=== PATIENT | male | born 1970 | race Caucasian/White ===

== ENCOUNTER 2021-11-16 05:00 | Emergency (ER) | payer BC, OTHER ==
[2021-11-16 05:39] LABS: Absolute Lymphocytes (CBC) 1.6 K/uL (0.7-4.9); Hematocrit 43.9 % (39.6-49.0); Lymphocytes % 22.9 % (15.3-44.8); MPV 7.2 fL (7.6-11.3); RBC Red Blood Cell Count 5.11 M/uL (4.33-5.43)
[2021-11-16 06:04] LABS: Albumin 4.1 g/dL (3.4-5.0); Bilirubin Total 0.8 mg/dL (0.2-1.0); Potassium 3.9 mmol/L (3.5-5.1); Protein, Total 7.8 g/dL (6.4-8.2)
--- NOTE | 2021-11-16 07:25 | RAD REPORT ---
EXAM DESCRIPTION: CT - Abdomen Pelvis W Contrast - 11/16/2021 6:48 am CLINICAL HISTORY: Abdominal pain, acute, nonlocalized COMPARISON: CTANGIO AORTA FOR DISSECTION dated 11/05/2009 TECHNIQUE: Biphasic, helical CT imaging of the abdomen and pelvis was performed following 100 ml non -ionic IV contrast. No oral contrast administered. All CT scans are performed using dose optimization technique as appropriate and may include automated exposure control or mA/KV adjustment according to patient size. FINDINGS: No suspicious findings in the lung bases. The liver, spleen, and pancreas show no suspicious findings. Gallbladder and biliary tree are also wi thout suspicious finding. Mild right-sided hydronephrosis is present secondary to a 4 mm stone at the right UVJ. This causes de layed function of the right kidney which is mildly edematous. No suspicious right renal parenchymal p rocess seen. No left-sided hydronephrosis. In the posterior mid to lower left kidney a 16 millimeter round mass is present. This is isodense to renal parenchyma on arterial phase imaging and decreased r elative to the adjacent parenchyma on venous phase imaging. Venous phase attenuation value is 76 HU. No pyelonephritis or other focal renal parenchymal process suspected. Urinary bladder is contracted w hich limits assessment. No suspicion for bladder wall thickening or mass. No adrenal abnormalities. No dilated bowel loops or bowel wall thickening. No suspicion for appendicitis. Sigmoid diverticulosi s is mild with no diverticulitis. No free air, free fluid or inflammatory stranding. No mass or bulk y lymphadenopathy. Fat filled left inguinal hernia is present with no acute component. No suspicious bony findings. IMPRESSION: Mild right-sided hydronephrosis secondary to a 4 mm UVJ calculus. A 16 mm posterior mid to lower pole left renal mass, new from a 2009 comparison, showing suspicious i maging characteristics. Statistically this is still most likely complex cyst rather than solid mass. Follow-up outpatient renal sonography could be performed to see there are simple cyst characteristic s by sonographic criteria. Alternatively, contrast-enhanced MRI imaging of the kidneys could be perfo rmed. Patient should at least have six-month contrast CT renal protocol follow-up if there is no bud ier diagnostic workup.
--- NOTE | 2021-11-16 08:31 | EDPHYS ---
Physician Documentation [facility] Name: Fermin Hanley Age: 51 yrs Sex: Male : 1970 Arrival Date: 11/16/2021 Time: 05:05 Bed 16 Private MD: ED Physician Edgar Brown HPI: 11/16 09:03 This 51 yrs old Male presents to ER via Ambulatory with complaints of Abdominal Pain. kdr 09:03 The patient presents with abdominal pain Right flank pain. Onset: The symptoms/episode kdr began/occurred suddenly, 2 day(s) ago, Patient states that he has had intermittent right flank pain for the past 2 days.. The symptoms radiate to the right flank. Associated signs and symptoms: Pertinent positives: nausea, Pertinent negatives: chest pain, constipation, diarrhea, dysuria, fever, headache, hematuria, vomiting. The symptoms are described as achy. Modifying factors: The symptoms are alleviated by nothing, the symptoms are aggravated by nothing. Severity of pain: At its worst the pain was mild moderate just prior to arrival, in the emergency department the pain is unchanged. The patient has not experienced similar symptoms in the past. The patient has not recently seen a physician. Historical: - Allergies: 05:16 Sulfa (Sulfonamide Antibiotics); lg3 - Home Meds: 05:16 metformin 500 mg Oral tab 1 tab 2 times per day [Active]; Simvastatin Oral [Active]; lg3 losartan 25 mg oral tab 1 tab once daily [Active]; - PMHx: 05:16 Diabetes mellitus; high cholesterol; lg3 - PSHx: 05:16 testicular mass removal; lg3 - Immunization history:: Adult Immunizations up to date, Client reports receiving the 2nd dose of the Covid vaccine, moderna X2. - Social history:: Smoking status: Patient denies any tobacco usage or history of. Patient/guardian denies using alcohol. ROS: 09:03 Constitutional: Negative for fever, chills, and weight loss, Eyes: Negative for injury, kdr pain, redness, and discharge, Neck: Negative for injury, pain, and swelling, Cardiovascular: Negative for chest pain, palpitations, and edema, Respiratory: Negative for shortness of breath, cough, wheezing, and pleuritic chest pain, Back: Negative for injury and pain, MS/Extremity: Negative for injury and deformity, Skin: Negative for injury, rash, and discoloration, Neuro: Negative for headache, weakness, numbness, tingling, and seizure activity. Psych: Negative for depression, anxiety, suicide ideation, homicidal ideation, and hallucinations, Allergy/Immunology: Negative for hives, rash, and allergies, Endocrine: Negative for neck swelling, polydipsia, polyuria, polyphagia, and marked weight changes, Hematologic/Lymphatic: Negative for swollen nodes, abnormal bleeding, and unusual bruising. 09:03 Abdomen/GI: Positive for abdominal pain, nausea, vomiting, Negative for constipation, abdominal cramps, abdominal distension, anorexia, dysphagia, black/tarry stool, rectal pain, rectal bleeding, bowel incontinence. Exam: 09:03 Constitutional: This is a well developed, well nourished patient who is awake, alert, kdr and in no acute distress. Head/Face: Normocephalic, atraumatic. Eyes: Pupils equal round and reactive to light, extra-ocular motions intact. Lids and lashes normal. Conjunctiva and sclera are non-icteric and not injected. Cornea within normal limits. Periorbital areas with no swelling, redness, or edema. ENT: Nares patent. No nasal discharge, no septal abnormalities noted. Tympanic membranes are normal and external auditory canals are clear. Oropharynx with no redness, swelling, or masses, exudates, or evidence of obstruction, uvula midline. Mucous membranes moist. Neck: Trachea midline, no thyromegaly or masses palpated, and no cervical lymphadenopathy. Supple, full range of motion without nuchal rigidity, or vertebral point tenderness. No Meningismus. Chest/axilla: Normal chest wall appearance and motion. Nontender with no deformity. No lesions are appreciated. Cardiovascular: Regular rate and rhythm with a normal S1 and S2. No gallops, murmurs, or rubs. Normal PMI, no JVD. No pulse deficits. Respiratory: Lungs have equal breath sounds bilaterally, clear to auscultation and percussion. No rales, rhonchi or wheezes noted. No increased work of breathing, no retractions or nasal flaring. Back: No spinal tenderness. No costovertebral tenderness. Full range of motion. Skin: Warm, dry with normal turgor. Normal color with no rashes, no lesions, and no evidence of cellulitis. MS/ Extremity: Pulses equal, no cyanosis. Neurovascular intact. Full, normal range of motion. Neuro: Awake and alert, GCS 15, oriented to person, place, time, and situation. Cranial nerves II-XII grossly intact. Motor strength 5/5 in all extremities. Sensory grossly intact. Cerebellar exam normal. Normal gait. Psych: Awake, alert, with orientation to person, place and time. Behavior, mood, and affect are within normal limits. 09:03 Abdomen/GI: Inspection: abdomen appears normal, Bowel sounds: active, Palpation: soft, mild abdominal tenderness, in the right lower quadrant, mass, is not appreciated, rebound tenderness, is not appreciated. Vital Signs: 05:12 BP 142 / 95; Pulse 77; Resp 16 S; Temp 97.6(O); Pulse Ox 100% on R/A; Weight 90.72 kg lg3 (R); Height 5 ft. 10 in. (177.80 cm) (R); Pain 7/10; 07:27 BP 112 / 78; Pulse 76; Resp 16; Pulse Ox 95% ; bp 05:12 Body Mass Index 28.70 (90.72 kg, 177.80 cm) lg3 MDM: 08:30 Patient medically screened. kdr 09:03 Data reviewed: vital signs, nurses notes, lab test result(s), radiologic studies. kdr Counseling: I had a detailed discussion with the patient and/or guardian regarding: the historical points, exam findings, and any diagnostic results supporting the discharge/admit diagnosis, lab results, radiology results, the need for outpatient follow up. 11/16 05:10 Order name: CBC with Diff; Complete Time: 07:40 kdr 11/16 05:10 Order name: CMP; Complete Time: 07:40 kdr 11/16 05:10 Order name: Lipase; Complete Time: 07:40 kdr 11/16 05:10 Order name: IV Saline Lock; Complete Time: 05:29 kdr 11/16 05:25 Order name: CT Abd/Pelvis - IV Contrast Only; Complete Time: 07:40 kdr 11/16 05:10 Order name: Labs collected and sent; Complete Time: 05:29 kdr Administered Medications: 05:30 Not Given (Patient Refused): Zofran (Ondansetron) 4 mg IVP once; over 2 minutes sm5 Disposition Summary: 11/16/21 08:30 Discharge Ordered Location: Home kdr Problem: new kdr Symptoms: have improved kdr Condition: Stable kdr Diagnosis - Kidney stone: 4 mm right UVJ stone kdr - Renal mass: 10 mm right kidney kdr Followup: kdr - With: Private Physician - When: 2 - 3 days - Reason: If symptoms return, Further diagnostic work-up, Recheck today's complaints, Continuance of care, Re-evaluation by your physician Followup: kdr - With: Gume Harding MD - When: 1 - 2 days - Reason: If symptoms return, Further diagnostic work-up, Recheck today's complaints, Continuance of care, Re-evaluation by your physician Discharge Instructions: - Discharge Summary Sheet kdr - Kidney Stones, [id number] kdr Forms: - Medication Reconciliation Form kdr - Thank You Letter kdr - Antibiotic Education kdr - Prescription Opioid Use kdr Prescriptions: - Zofran 4 mg Oral Tablet - take 1 tablet by ORAL route every 12 hours As needed; 6 tablet; Refills: 0, kdr Product Selection Permitted - Bactrim DS 800-160 mg Oral Tablet - take 1 tablet by ORAL route every 12 hours for 3 days; 6 tablet; Refills: 0, kdr Product Selection Permitted - Tylenol-Codeine #3 300 mg-30 mg Oral - take 1 tablet by ORAL route every 4-6 hours As needed; 16 tablet; Refills: 0, kdr Product Selection Permitted - Flomax 0.4 mg Oral capsule - take 1 capsule by ORAL route once daily 1/2 hour following the same meal each kdr day; 15 capsule; Refills: 0, Product Selection Permitted Signatures: Dispatcher [employer] Edgar Dutton MD MD kdr Eva Bal RN RN lg3 Jumana Mosquera RN sm5
--- NOTE | 2021-11-16 08:31 | ER ---
Nurse's Notes [facility] Name: Fermin Hanley Age: 51 yrs Sex: Male : 1970 Arrival Date: 11/16/2021 Time: 05:05 Bed 16 Private MD: Diagnosis: Kidney stone: 4 mm right UVJ stone;Renal mass: 10 mm right kidney Presentation: 11/16 05:12 Chief complaint: Patient states: right lower abdominal pain started on Tuesday lg3 afternoon but it went away until around midnight and started back again. it is gradually getting worse over time. Coronavirus screen: Client denies travel out of the [place] in the last 14 days. At this time, the client does not indicate any symptoms associated with coronavirus-19. Ebola Screen: No symptoms or risks identified at this time. Initial Sepsis Screen: Does the patient meet any 2 criteria? No. Patient's initial sepsis screen is negative. Does the patient have a suspected source of infection? No. Patient's initial sepsis screen is negative. Risk Assessment: Do you want to hurt yourself or someone else? Patient reports no desire to harm self or others. Onset of symptoms was November 14, 2021. 05:12 Method Of Arrival: Ambulatory lg3 05:12 Acuity: PEREZ 3 lg3 Triage Assessment: 05:16 General: Appears in no apparent distress. uncomfortable, Behavior is calm, cooperative. lg3 Pain: Complains of pain in right lower quadrant. EENT: No deficits noted. No signs and/or symptoms were reported regarding the EENT system. Neuro: No deficits noted. Level of Consciousness is awake, alert, obeys commands, Oriented to person, place, time, situation. Cardiovascular: No deficits noted. Denies chest pain, shortness of breath, Capillary refill < 3 seconds Clubbing of nail beds is absent JVD is absent Patient's skin is warm and dry. Respiratory: No deficits noted. Airway is patent Trachea midline Respiratory effort is even, unlabored, Respiratory pattern is regular, symmetrical. GI: Reports lower abdominal pain, intolerance of fluids, intolerance of food, nausea. : No deficits noted. No signs and/or symptoms were reported regarding the genitourinary system. Derm: No deficits noted. No signs and/or symptoms reported regarding the dermatologic system. Skin is intact, is healthy with good turgor, Skin is dry, Skin is pink, warm \T\ dry. Musculoskeletal: No deficits noted. No signs and/or symptoms reported regarding the musculoskeletal system. Circulation, motion, and sensation intact. Range of motion: intact in all extremities. Historical: - Allergies: 05:16 Sulfa (Sulfonamide Antibiotics); lg3 - Home Meds: 05:16 metformin 500 mg Oral tab 1 tab 2 times per day [Active]; Simvastatin Oral [Active]; lg3 losartan 25 mg oral tab 1 tab once daily [Active]; - PMHx: 05:16 Diabetes mellitus; high cholesterol; lg3 - PSHx: 05:16 testicular mass removal; lg3 - Immunization history:: Adult Immunizations up to date, Client reports receiving the 2nd dose of the Covid vaccine, moderna X2. - Social history:: Smoking status: Patient denies any tobacco usage or history of. Patient/guardian denies using alcohol. Screenin:41 Abuse screen: Denies threats or abuse. Denies injuries from another. Nutritional sm5 screening: No deficits noted. Tuberculosis screening: No symptoms or risk factors identified. Fall Risk None identified. Assessment: 05:45 General: Appears in no apparent distress. Behavior is calm, cooperative, appropriate kd3 for age. Neuro: Level of Consciousness is awake, alert, obeys commands, Oriented to person, place, time, situation. Cardiovascular: Patient's skin is warm and dry. Respiratory: Airway is patent Trachea midline Respiratory effort is even, unlabored. GI:. 07:30 Reassessment: No changes from previously documented assessment. Patient and/or family bp updated on plan of care and expected duration. Pain level reassessed. ALL CURRENT ORDERS COMPLETE. 08:55 GI: Bowel sounds present X 4 quads. Abd is soft. ap3 Vital Signs: 05:12 BP 142 / 95; Pulse 77; Resp 16 S; Temp 97.6(O); Pulse Ox 100% on R/A; Weight 90.72 kg lg3 (R); Height 5 ft. 10 in. (177.80 cm) (R); Pain 7/10; 07:27 BP 112 / 78; Pulse 76; Resp 16; Pulse Ox 95% ; bp 05:12 Body Mass Index 28.70 (90.72 kg, 177.80 cm) lg3 ED Course: 05:05 Patient arrived in ED. ag3 05:08 Edgar Brown MD is Attending Physician. kdr 05:16 Triage completed. lg3 05:16 Arm band placed on left wrist. lg3 05:29 Jumana Mosquera, RN is Primary Nurse. sm5 05:42 Patient has correct armband on for positive identification. Bed in low position. Call sm5 light in reach. Side rails up X2. 05:55 Inserted saline lock: 20 gauge in right antecubital area, using aseptic technique. sm5 Blood collected. 06:49 CT Abd/Pelvis - IV Contrast Only In Process Unspecified. EDMS 08:28 Gume Harding MD is Referral Physician. kdr 08:55 No provider procedures requiring assistance completed. IV discontinued, intact, ap3 bleeding controlled, No redness/swelling at site. Pressure dressing applied. Administered Medications: 05:30 Not Given (Patient Refused): Zofran (Ondansetron) 4 mg IVP once; over 2 minutes sm5 Outcome: 08:30 Discharge ordered by . kdr 08:56 Discharged to home ambulatory, with family. ap3 08:56 Condition: good 08:56 Discharge instructions given to patient, family, Instructed on discharge instructions, follow up and referral plans. medication usage, Demonstrated understanding of instructions, follow-up care, medications, Prescriptions given X 4. 08:56 Patient left the ED. ap3 Signatures: Dispatcher [employer] ED[facility] Edgar Brown MD MD kdr Travon Mcguire, RN RN Yudelka Gibbons RN RN ap3 Michelle Holland 3 Eva Bal RN RN 3 Sarah Solis, REECE NEWELL 3 Jumana Mosquera, RN RN 5
[2021-11-16 09:02] VITALS: TEMP 97.6
[2021-11-16 09:03] VITALS: BP 112/78; O2SAT 95
== END 2021-11-16 08:56 | disposition home or self-care (01) ==
LOC: ER 05:00
DX: N20.0 Calculus of kidney (principal); N28.89 Other specified disorders of kidney and ureter; Z88.2 Allergy status to sulfonamides; E11.9 Type 2 diabetes mellitus without complications; E78.00 Pure hypercholesterolemia, unspecified
CPT/HCPCS: 85025; 36415; 83690; 80053; 74177; 99284; Q9967

== ENCOUNTER 2022-07-30 20:08 | Emergency (ER) | payer OTHER ==
--- OUTSIDE RECORDS SUMMARY | 2022-07-30 20:26 | XMS REPORT | Continuity of Care Document ---
:1970 Author Organization [facility] t Address [address] [place] [address] Care Team Providers Name Role Phone [phone] Primary Care Physician Unavailable SYSTEM, PROVIDER NOT IN Attending Clinician Unavailable Liliana Aguilera Attending Clinician Germaine Rojas RN Attending Clinician Unavailable Bren Osorio Attending Clinician Aye Camargo MD Attending Clinician AYE CAMARGO Attending Clinician Unavailable Jose Hernández Attending Clinician JOSE CHRISTENSEN Attending Clinician Unavailable Emmanuel Desouza RN Attending Clinician Gume Harding MD Attending Clinician Payers Payer Name Policy Type Policy Number Effective Date Expiration Date S ource Problems Condition Condition Condition Status Onset Resolution Last Treating Co mments Source Name Details Category Date Date Treatment Clinician Date Nephrolith Nephrolith Disease Active 2022- U nivers iasis iasis 1-05 ity of 00:00: 00 [facility] Renal mass Renal mass Disease Active 2021-07 U nivers 0-10 ity of 00:00: MD [facility] Obstructiv Obstructiv Disease Active 2021-07 U nivers e sleep e sleep 0-10 ity of apnea apnea 00:00: [place] syndrome syndrome 00 MD [facility] Diabetes Diabetes Disease Active 2021-07 Unive rs mellitus mellitus 0-10 ity of 00:00: [place] 00 MD [facility] Type 2 Type 2 Disease Active 2021-07 Univers diabetes diabetes 0-10 ity of mellitus mellitus 00:00: [place] MD Jaclyn angela [facility] Allergies, Adverse Reactions, Alerts Allergy Allergy Status Severity Reaction(s) Onset Inactive Treating Comm ents Source Name Type Date Date Clinician SULFA Drug Active Low Rash 2021- MD (SULFONA Class 0-10 Anderso MIDE 00:00: n ANTIBIOT 00 ICS) SULFA Drug Active Low Rash 2021- MD (SULFONA Class 0-10 Anderso MIDE 00:00: n ANTIBIOT 00 ICS) SULFA Drug Active Low Rash 2021- MD (SULFONA Class 0-10 Anderso MIDE 00:00: n ANTIBIOT 00 ICS) SULFA Drug Active Low Rash 2021- MD (SULFONA Class 0-10 Anderso MIDE 00:00: n ANTIBIOT 00 ICS) SULFA Drug Active Low Rash 2021- MD (SULFONA Class 0-10 Anderso MIDE 00:00: n ANTIBIOT 00 ICS) SULFA Drug Active Low Rash 2021-1 MD (SULFONA Class 0-10 Anderso MIDE 00:00: n ANTIBIOT 00 ICS) SULFA Drug Active Low Rash 2021-1 MD (SULFONA Class 0-10 Anderso MIDE 00:00: n ANTIBIOT 00 ICS) SULFA Drug Active Low Rash 2021-1 MD (SULFONA Class 0-10 Anderso MIDE 00:00: n ANTIBIOT 00 ICS) SULFA Drug Active Low Rash 2021-1 MD (SULFONA Class 0-10 Anderso MIDE 00:00: n ANTIBIOT 00 ICS) SULFA Drug Active Low Rash 2-1 MD (SULFONA Class 0-10 Anderso MIDE 00:00: n ANTIBIOT 00 ICS) SULFA Drug Active Low Rash 2-1 MD (SULFONA Class 0-10 Anderso MIDE 00:00: n ANTIBIOT 00 ICS) Sulfa Propensi Active Rash 2021- Univers (Sulfona ty to 0-10 ity of mide adverse 00:00: [place] Antibiot reaction 00 ics) s [facility] Family History Family Member Diagnosis Comments Start Date Stop Date Source Natural father Leukemia [facility] Social History Social Habit Start Date Stop Date Quantity Comments Source Tobacco use and 2022-05-03 2022-05-03 Smokeless tobacco Un iversity of exposure 00:00:00 00:00:00 non-user Micki chambers [facility] Alcohol intake 2022-05-03 2022-05-03 Lifetime University of 00:00:00 00:00:00 non-drinker Micki gonz[facility]les ([facility] Sex Ass[birth year] Universit y of 00:00:00 00:00:00 [place] MD Cong chambers [facility] Smoking Status Start Date Stop Date Source Never smoked tobacco [facility] Medications Ordered Filled Start Stop Current Ordering Indication Dosage Frequency Signature Comments Components Source Medication Medication Date Date Medication? Clinician (SIG) Name Name tamsulosin Yes Nephrolithi .4mg Take 1 Univers (FLOMAX) 1-05 asis capsule ity of 0.4 mg 24 00:00: (0.4 mg) [place] capsule 00 by mouth MD marce Anaya daily. n [facility] multivitami 2021-07 Yes 1{tbl} Take 1 Un deann n tab 1-07 tablet by ity of tablet 10:33: mouth [place] 40 daily. MD Jaclyn angela [facility] atorvastati Yes 40mg Take 40 mg Univers n (LIPITOR) 7-19 by mouth ity of 40 mg 00:00: daily. [place] tablet 00 MD Jaclyn angela [facility] losartan Yes 25mg Take 25 mg Uni vers (COZAAR) 25 7-19 by mouth ity of mg tablet 00:00: daily. [place] 00 MD Jaclyn angela [facility] metFORMIN Yes 500mg Take 500 Uni vers (GLUCOPHAGE 7-19 mg by ity of ) 500 mg 00:00: mouth 2 [place] tablet 00 (two) MD times a Jaclyn day with n meals. [facility] Immunizations Ordered Filled Immunization Date Status Comments Sourc e Immunization Name Name Moderna SARS-CoV-2 2020-10-03 Completed Univer sity of Vaccination 00:00:00 Micki gonzáles [facility] Moderna SARS-CoV-2 2020-08-30 Completed Univer sity of Vaccination 00:00:00 Micki [facility] Vital Signs Vital Name Observation Time Observation Value Comments Source Systolic blood 2022-05-31 16:22:17 122 mm[Hg] Univer sity of pressure [facility] Diastolic blood 2022-05-31 16:22:17 80 mm[Hg] Unive rsity of pressure [place] MD [facility] Heart rate 2022-05-31 16:22:17 71 /min [facility] Body temperature 2022-05-31 16:22:17 36.28 Lisa [facility] Respiratory rate 2022-05-31 16:22:17 18 /min [facility] Oxygen saturation in 2022-05-31 16:22:17 99 /min [facility] Arterial blood by Micki bradley Pulse oximetry [facility] Body height 2022-05-03 13:44:39 178.5 cm [facility] Body weight 2022-05-03 13:44:39 94.3 kg [facility] MD [facility] BMI 2022-05-03 13:44:39 29.60 kg/m2 [facility] MD [facility] Procedures Procedure Date / Time Performed Performing Clinician Sour e CT ABDOMEN W WO 2022-05-31 15:00:00 [facility] CONTRAST [facility] POC CREATININE 2022-05-31 14:23:00 [facility] XR CHEST 2 VW 2022-05-31 13:08:[facility] OSI MRI ABDOMEN 2021-11-23 13:05:00 Mary Jo [facility] Plan of Care Planned Activity Planned Date Details Comments Source Future Scheduled 2022-07-29 COVID-19 [facility] Test 09:47:46 (3 - Booster for MD Yfn Cancer Moderna series) [code Center = COVID-19 Vaccination (3 - Booster for Moderna series)] Encounters Start End Encounter Admission Attending Care Care Encounter Source Date/Time Date/Time Type Type Clinicians Facility Department ID 2022-05-19 Outpatient SYSTEM, [facility] YANIRA [id number] 12:41:20 PROVIDER Jas angela 2022-04-08 Outpatient SYSTEM, YANIRA DOLYE [id number] 07:12:00 PROVIDER Jas angela 2022-07-29 2022-07-29 Orders Shed, 1.2.840.1 [id number] Univers 00:00:00 00:00:00 Only Liliana Chavis 72959.1.1 ity of 3.412.2.7 [place] .3.068535 MD Travis8 [facility] 2022-06-28 2022-06-28 Telephone Crystal, 1.2.840.1 [id number] Univers 00:00:00 00:00:00 Germaine 21705.1.1 it y of 3.412.2.7 [place] .3.647462 MD Cody [facility] 2022-06-03 2022-06-03 Orders Leon, 1.2.840.1 [id number] Univers 00:00:00 00:00:00 Only Bren 69210.1.1 ity of 3.412.2.7 [place] .3.776153 MD Cody [facility] 2022-05-31 2022-05-31 Office Adibfilippo, 1.2.840.1 [id number] Univers 10:30:00 11:48:31 Visit Aye 24617.1.1 ity of 3.412.2.7 [place] .3.921408 MD Cody [facility] 2022-05-31 2022-05-31 Outpatient EL MARY JO, YANIRA DOYLE [id number] 09:11:56 11:48:31 AYE angela 2022-05-31 2022-05-31 Ancillary Jose Christensen 1.2.840.1 [id number] Univers 06:50:00 09:40:00 Procedure 52645.1.1 it y of 3.412.2.7 [place] .3.013507 MD Cody [facility] 2022-05-31 2022-05-31 Ancillary Jose Christensen 1.2.840.1 [id number] Univers 09:15:00 09:30:00 Procedure 40554.1.1 it y of 3.412.2.7 [place] .3.775740 MD Cody [facility] 2022-05-31 2022-05-31 Outpatient JOSE APONTE MDA MDA [id number] 06:23:58 06:23:58 [facility] 2022-05-31 2022-05-31 Outpatient JOSE APONTE MDA MDA [id number] 06:23:37 06:23:37 Jas [facility] 2022-05-31 2022-05-31 Travel 1.2.840.1 [id number] [id number] Univers 00:00:00 00:00:00 42399.1.1 350.1.13.41 ity of 3.412.2.7 2.[place]7.3.698 [place] .3.620221 084.8 .8 [facility] 2022-05-14 2022-05-14 Telephone Deo, 1.2.840.1 [id number] Univers 00:00:00 00:00:00 Macaela T 21326.1.1 it y of 3.412.2.7 [place] .3.307797 MD Travis8 [facility] 2022-05-03 2022-05-03 Office Mary Jo, 1.2.840.1 [id number] Univers 09:00:00 10:15:40 Visit Mehrmeena 79531.1.1 ity of 3.412.2.7 [place] .3.772690 MD Travis8 [facility] 2022-05-03 2022-05-03 Outpatient MARY JO YANIRA MDA [id number] 08:34:35 10:15:40 MEBRY Mark julio césar 2022-05-03 2022-05-03 Travel 1.2.840.1 [id number] [id number] Univers 00:00:00 00:00:00 84376.1.1 350.1.13.41 ity of 3.412.2.7 2.[place].7.3.698 [place] .3.462934 084.8 MD Travis8 [facility] 2022-05-01 2022-05-01 Outpatient WESTON MARY JOYANIRA [facility] [id number] MD 13:03:43 13:03:47 AYE Jasannabelle angela 2022-05-01 2022-05-01 NPR Adibi, 1.2.840.1 [id number] Univers 11:00:00 13:03:47 Mebry 63695.1.1 ity of 3.412.2.7 [place] .3.265153 MD Travis8 [facility] 2022-04-23 2022-04-23 Ancillary Adibi, 1.2.840.1 [id number] Univers 20:00:00 20:05:00 Procedure Aye 97644.1.1 it y of 3.412.2.7 [place] .3.304827 MD Cody [facility] 2022-04-23 2022-04-23 Outpatient MEENAFilippoYANIRA [facility] [id number] 06:43:39 06:43:39 AYE Jasannabelle angela 2022-04-06 2022-04-06 Telephone [place], 1.2.840.1 [id number] Univers 00:00:00 00:00:00 Gume 55203.1.1 ity of 3.412.2.7 [place] .3.706338 MD Travis8 [facility] Results Test Description Test Time Test Comments Results Result Comments Source POC Creatinine 2022-05-31 13:27:16 Test Item Value Reference Range Interpretation Comme nts POC Crea (test code = 0.9 mg/dL 0.6-1.3 Medica tions, especially 07238-9) hydroxyurea or supplements, such as ascorba te, can interfere with test results causing a false ly and significantly h igher result than expected. If a problem is suspected with a patient's result, a sampl e should be sent to the lab oratory for confirmatory te sting. Method description: Th e i-STAT is an analyzer used f or in vitro quantification of various analytes in who le blood. The device uses a s vinod disposable cart ridge which contains microf abricated sensors, a nadeem bration solution, fluid ics system, and a waste chamber . Each test cartridge conta ins chemically sensitive biose nsors on a silicon chip th at are configured to p erform specific tests. The micr ofabricated sensors measure analyte concentration b y an electrochemical assay. POC EGFR (test code = 102 See_Comment The eG FRcr is calculated with [address]4796) the 2020 CKD-EP I creatinine equation using creatinine, patient's age, and sex for adults 18 years of age and older. Other fa ctors, especially musc le mass, may affect accuracy and need to be considered.Acco rding to the Kidney Disease: Improving Global Outcomes (KDIGO) CKD Work Group 2012 Clinical Practice Guidel ine, chronic kidney disease (CKD) is defined as the abnormalities of kidney struc ture or function, prese nt for more than 3 months, with implications fo r health. CKD should be class ified by cause, GFR category, a nd albuminuria category. KDIGO guidelines provide the fol lowing GFR categoriesStage Description GFR mL/min/1.73 m2G1* Normal or high >= 90G2 * Mildly decreased 60-89 G3a Mildly to moderately decr eased 45-59G3b Moderately to s everely decreased 30-44 G4 Severely decreased 15-29 G5 Kidney failure <15*In the absence of evidence of kid antwan damage, neither G1 nor G2 fulfill criteria for CK D. [Automated message] The sy stem which generated this result transmitted ref erence range: >=60 mL/min/1.7 3 sq. m. The reference range was not used to interpret th is result as normal/abnormal . POC Clean Dev (test code Yes = 6672) Performing Lab (test code [facility] = 67290) [facility] ,[address], [place] [address], Point of Care Machine Operator Transplanter: Luis Benito MD [facility] [place]
--- OUTSIDE RECORDS SUMMARY | 2022-07-30 20:26 | XMS REPORT | Clinical Summary ---
:1970 Author Organization [facility] MD [facility] Address [address] [place] [address] Care Team Providers Name Role Phone Klever Camargo MD Primary Care Provider Allergies Active Allergy Reactions Severity Noted Date Comments Sulfa (Sulfonamide Antibiotics) Rash Low Medications Medication Sig Dispensed Refills Start Date End Date Status atorvastatin (LIPITOR) Take 40 mg by 0 02/09/2021 Active 40 mg tablet mouth daily. losartan (COZAAR) 25 mg Take 25 mg by 0 02/09/2021 Active tablet mouth daily. metFORMIN (GLUCOPHAGE) Take 500 mg by 0 02/09/2021 Active 500 mg tablet mouth 2 (two) times a day with meals. multivitamin tab tablet Take 1 tablet 0 Active by mouth daily. tamsulosin (FLOMAX) 0.4 Take 1 capsule 30 capsule 0 07/29/2022 Active mg 24 hr (0.4 mg) by capsuleIndications: mouth twice Nephrolithiasis daily. Active Problems Problem Noted Date Nephrolithiasis 07/29/2022 Renal mass 05/03/2022 Obstructive sleep apnea syndrome 05/03/2022 Diabetes mellitus 05/03/2022 Type 2 diabetes mellitus 05/03/2022 Encounters Date Type Specialty Care Team Description 07/29/2022 Orders Only Survivorship Liliana Berry Nephroljaren GONSALES (Primary Dx) 06/28/2022 Telephone Surgical Oncology Germaine Rojas, REECE 06/03/2022 Orders Only Radiology Bren Leon PA 05/31/2022 Office Visit Urology Klever Camargo Renal mass 05/31/2022 Ancillary Radiology Claudio Christensen PA Renal mass Procedure 05/31/2022 Ancillary Radiology Claudio Christensen PA Renal mass Procedure 05/31/2022 Travel 05/14/2022 Telephone Oncology Emmanuel Desouza RN 05/03/2022 Office Visit Urology Klever Camargo, Renal mass (Alejandro elkins MD Dx) 05/03/2022 Travel 05/01/2022 NPR Patient Access Klever Camargo Services 04/23/2022 Ancillary Radiology Klever Camargo, Cancer Procedure 04/06/2022 Telephone Patient Access Odilia Harding MD after 07/30/2021 Immunizations Name Administration Dates Next Due Moderna SARS-CoV-2 Vaccination 10/03/2020, 08/30/2020 Surgical History Surgery Date Site/Laterality Comments INCISION AND DRAINAGE 07/25/2015 - 07/24/2016 unde r anesthesia PERIRECTAL ABSCESS Medical History Medical History Date Comments Hyperlipidemia Probably 10 years ago Irregular heart beat [facility] Hearing loss 6-7 yrs ago Probably just aging Functional visual loss 4yrs ago Got contacts Swallowing problem 4yrs ago Planned to have it c hecked out and changed diet due to diabetes. No issues since then. 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 airway pressure ventilation Renal stone October 2021 How we discovered ma sses in kidney Rheumatoid arthritis 15 yrs? Right Shoulder Diabetes mellitus January 2021 Essential (primary) hypertension Renal mass 05/03/2022 Family History Medical History Relation Name Comments Leukemia Father Edward Hanley Relation Name Status Comments Father Edward Hanley Social History Tobacco Use Types Packs/Day Years Used Date Smoking Tobacco: Never Smokeless Tobacco: Never Alcohol Use Standard Drinks/Week Comments Never 0 (1 standard drink = 0.6 oz pure alcoho l) Sex Assigned at Date Recorded Not on file Job Start Date Occupation Industry Not on file Not on file Not on file Obstetrics History Last Filed Vital Signs Vital Sign Reading Time Taken Comments Blood Pressure 122/80 05/31/2022 10:22 AM MACHINE CUTTER Pulse 71 05/31/2022 10:22 AM MACHINE CUTTER Temperature 36.3 C (97.3 F) 05/31/2022 10:22 AM MACHINE CUTTER Respiratory Rate 18 05/31/2022 10:22 AM MACHINE CUTTER Oxygen Saturation 99% 05/31/2022 10:22 AM MACHINE CUTTER Inhaled Oxygen Concentration - - Weight 94.3 kg (207 lb 14.3 oz) 05/03/2022 8:44 AM CDT Height 178.5 cm (5' 10.28") 05/03/2022 8:44 AM CDT Body Mass Index 29.6 05/03/2022 8:44 AM CDT Plan of Treatment Date Type Specialty Care Team Description 08/10/2022 Clinical Support Covid Bren Leon PA [address] [place] [address]. [place], [place] [address] (Wo rk) 08/10/2022 Appointment Cardiology Bren Leon PA [address] [place] [phone] (Wo rk) 08/10/2022 Appointment Lab Bren Leon PA [address] [place] [phone] (Wo rk) 08/10/2022 Appointment Radiology Klever Camargo M D [address] [place] [phone] Maegan Love MD [address] [place] [phone] 08/10/2022 POEM Appointments Anesthesiology Bren Leon PA [address] [place] [phone] (Wo rk) 08/11/2022 Appointment Radiology Liliana Berry PA [address] [place] [phone] Maegan Love MD [address] [place] [phone] 08/18/2022 Appointment Radiology Klever Camargo M D [facility] [place], [place] [address] (Wo rk) 08/19/2022 Telemedicine Urology Klever Camargo M D [address] [place], [place] 7[address] (Wo rk) 01/28/2023 Appointment Radiology Klever Camargo M D [address] [place], [place] 7[address] (Wo rk) 08/05/2023 Appointment Radiology Klever Camargo M D [address] [place], [place] [address] (Wo rk) Health Maintenance Due Date Last Done Comments COVID-19 Vaccination (3 - Booster for 11/28/2020 10/03/2020 , 08/30/2020 Moderna series) Procedures Procedure Name Priority Date/Time Associated Comments Diagnosis CT ABDOMEN W WO Routine 05/31/2022 9:00 AM Renal mass Result s for this CONTRAST MACHINE CUTTER procedure are i n the results section. POC CREATININE Routine 05/31/2022 8:23 AM Results for this MACHINE CUTTER procedure are i n the results section. XR CHEST 2 VW Routine 05/31/2022 7:08 AM Renal mass Results for this MACHINE CUTTER procedure are i n the results section. OSI MRI ABDOMEN Routine 11/23/2021 8:05 AM Cancer Result s for this CDT procedure are i n the results section. after 07/30/[address] Abdomen with and without Contrast (05/31/2022 9:00 AM MACHINE CUTTER) Anatomical Region Laterality Modality Abdomen Computed Tomography Specimen (Source) Anatomical Collection Method Collection Time Re ceived Time Location / / Volume Laterality 05/31/2022 9:19 AM MACHINE CUTTER Impressions 05/31/2022 9:48 AM MACHINE CUTTER 1. Two enhancing left renal masses are overall stable in size since 11/23/2021, likely renal cell carcinoma. 2. No definite metastasis in the abdom en. Narrative 05/31/2022 9:48 AM MACHINE CUTTER Examination: CT ABDOMEN W WO CONTRAST, 1 07/31/2021 9:00 AM Clinical History: Renal mass Indication: Evaluate Renal Masses - Yarelis l Protocol Comparison: Outside facility MRI abdomen from 11/23/2021 Technique: CT of the abdomen was perform ed with and without intravenous contrast. Findings: LUNG BASES: Small cluster of nonspecific groundglass and nodular pulmonary opacities in the right lower lobe may represent inflammatory or infectious process and can be followed (series 3 image 22 and 26 are exampl es). A 0.4 cm calcified granuloma lies i n the left lower lobe. No pleural effusions. ABDOMEN: No suspicious liver lesions. The gallbla dder, pancreas, spleen and adrenal glands are normal. The left kidney contains 2 enhancing mas ses suspicious for renal cell carcinoma, which are overall unchanged in size when compared to outside facility MRI dated 11/23/2021. The first mass is in the upper pole, predominantly intracortical with s lightly exophytic bulging, does not involve the renal sinus fat or calyces and measures approximately 1.7 cm x 1.5 cm (series 6 image 88). The mass also contains likely small foci of cystic changes. The second enhancing left renal mass lie s in the lower pole, is also predominantly intracortical with minimal exophytic extension, slightly abuts the adjacent renal calyx and measures approximately 1.8 cm x 1.9 cm (series 15 image 71). Stable probably 0.5 cm right renal corti olivia cyst. Slightly larger left parapelvic renal cysts also unchanged. The left kidney contains a nonobstructive 0.4 cm stone. No hydronephrosis in both kidneys. No thrombus in the IVC or renal veins. Likely small descending duodenal diverti culum. No suspicious bowel wall thickening or obstruction seen in the abdomen. Stable slightly prominent nonspecific 1. 2 cm common hepatic artery lymph node (series 11 image 76). No lymphadenopathy otherwise seen elsewhere in the abdomen including the retroperitoneum. No ascites or free intraperitoneal air. Moderate degenerative changes along the thoracic and lumbar spine consisting of osteophyte formations. Procedure Note Chandan Butler MD - 05/31/2022Formatting of th is note might be different from the original. Examination: CT ABDOMEN W WO CONTRAST, 1 07/31/2021 9:00 AM Clinical History: Renal mass Indication: Evaluate Renal Masses - Yarelis l Protocol Comparison: Outside facility MRI abdomen from 11/23/2021 Technique: CT of the abdomen was perform ed with and without intravenous contrast. Findings: LUNG BASES: Small cluster of nonspecific groundglass and nodular pulmonary opacities in the right lower lobe may represent inflammatory or infectious process and can be followed (series 3 image 22 and 26 are examples). A 0.4 cm calcified granuloma lies in the left low er lobe. No pleural effusions. ABDOMEN: No suspicious liver lesions. The gallbla dder, pancreas, spleen and adrenal glands are normal. The left kidney contains 2 enhancing mas ses suspicious for renal cell carcinoma, which are overall unchanged in size when compared to outside facility MRI dated 11/23/2021. The first mass is in the upper pole, predominantly intracortical with slightl y exophytic bulging, does not involve the renal sinus fat or calyces and measures approximately 1.7 cm x 1.5 cm (series 6 image 88). The mass also contains likely small foci of cystic changes. The second enhancing left renal mass lie s in the lower pole, is also predominantly intracortical with minimal exophytic extension, slightly abuts the adjacent renal calyx and measures approximately 1.8 cm x 1.9 cm (series 15 image 71). Stable probably 0.5 cm right renal corti olivia cyst. Slightly larger left parapelvic renal cysts also unchanged. The left kidney contains a nonobstructive 0.4 cm stone. No hydronephrosis in both kidneys. No thrombus in the IVC or renal veins. Likely small descending duodenal diverti culum. No suspicious bowel wall thickening or obstruction seen in the abdomen. Stable slightly prominent nonspecific 1. 2 cm common hepatic artery lymph node (series 11 image 76). No lymphadenopathy otherwise seen elsewhere in the abdomen including the retroperitoneum. No ascites or free intraperitoneal air. Moderate degenerative changes along the thoracic and lumbar spine consisting of osteophyte formations. IMPRESSION: 1. Two enhancing left renal masses are o verall stable in size since 11/23/2021, likely renal cell carcinoma. 2. No definite metastasis in the abdomen . Claudio GONSALES [place] CT ORDERABLES POC Creatinine (05/31/2022 8:23 AM MACHINE CUTTER) P athologist Signature POC Crea 0.9 0.6 - 1.3 POC TELCOR mg/dL Comment: Medications, especially hydroxyurea or s upplements, such as ascorbate, can interfere with test results causing a falsely and significantly higher result than expected. If a problem is suspected with a patient's result, a sample should be sent to the laboratory for confirmatory testing. Method description: The i-STAT is an jamir lyzer used for in vitro quantification of various analytes in whole blood. The device uses a single disposable cartridge which contains microfabricated sensors, a calibration solution, fluidics system, and a waste chamber. Each test cartridge contains ch emically sensitive biosensors on a silicon chip that are configured to perform specific tests. The microfabricated sensors measure analyte concentration by an electrochemical assay. POC EGFR 102 >=60 mL/min/1.73 sq. m POC TEL COR Comment: The eGFRcr is calculated with the 2020 KD-EPI creatinine equation using creatinine, patient's age, and sex for adults 18 years of age and older. Other factors, especially muscle mass, may affect accuracy and need to be considered. According to the Kidney Disease: Improvi ng Global Outcomes (KDIGO) CKD Work Group 2012 Clinical Practice Guideline, chronic kidney disease (CKD) is defined as the abnormalities of kidney structure or function, present for more than 3 months, with implications for health. CKD should be c lassified by cause, GFR category, and albuminuria category. KDIGO guidelines provide the following GFR categories Stage Description GFR mL/min/1.73 m2 G1* Normal or high >= 90 G2* Mildly decreased 60-89 G3a Mildly to moderately decreased 45-59 G3b Moderately to severely decreased 30- 44 G4 Severely decreased 15-29 G5 Kidney failure <15 *In the absence of evidence of kidney da mage, neither G1 nor G2 fulfill criteria for CKD. POC Clean Dev Yes POC TELCOR Performing Lab [facility] POC TELCO R Comment: [facility] bel[facility]ys [facility] ,[address] [place] [address], [place] [address], Point of Care It Systems Analyst: Meaghan Benito MD Specimen Anatomical Collection Method Collection Time Receive d Time (Source) Location / / Volume Laterality Blood 05/31/2022 8:23 AM 8:23 MACHINE CUTTER AM MACHINE CUTTER Claudio GONSALES POCT ORDERABLES - DEVICE Performing Organization Address City/State/ZIP Code Phon e Number POC TELCOR X-ray Chest 2 Views (05/31/2022 7:08 AM MACHINE CUTTER) Anatomical Region Laterality Modality Chest Digital Radiography Specimen (Source) Anatomical Collection Method Collection Time Re ceived Time Location / / Volume Laterality 05/31/2022 7:16 AM MACHINE CUTTER Impressions 05/31/2022 7:17 AM MACHINE CUTTER FINDINGS and IMPRESSION: 1. The cardiomediastinal silhouette is not enlarged. 2. There is no pneumothorax, significa nt pleural effusion or focal consolidation. 3. No acute or suspicious osseous find ings are identified. Narrative 05/31/2022 7:17 AM MACHINE CUTTER FULL RESULT: Examination: XR CHEST 2 VW, 05/31/2022 7: 08 AM Clinical History: Renal mass Indication: Evaluate Baseline Disease St ate, COVID-19 Not Suspected Comparison: None Technique: Posteroanterior, lateral and dual-energy radiographs of the chest. Procedure Note Praneeth Overton MD - 05/31/2022 FULL RESULT: Examination: XR CHEST 2 VW, 05/31/2022 7: 08 AM Clinical History: Renal mass Indication: Evaluate Baseline Disease St ate, COVID-19 Not Suspected Comparison: None Technique: Posteroanterior, lateral and dual-energy radiographs of the chest. IMPRESSION: FINDINGS and IMPRESSION: 1. The cardiomediastinal silhouette is n ot enlarged. 2. There is no pneumothorax, significant pleural effusion or focal consolidation. 3. No acute or suspicious osseous findin gs are identified. Claudio BOBO DIAGNOSTIC IMAGING ORDER ALANNA OSI MRI ABDOMEN (11/23/2021 8:05 AM CDT) Specimen (Source) Anatomical Location Collection Method / Collectio n Time Received Time / Laterality Volume Narrative Systemgenerated, Documentation - 022 8:05 AM CDT Study acquired at another institution. For comparison only. No MD Coulter originated interpretation requested or a vailable. Klever BOBO OUTSIDE IMAGE ORDERABLES after 07/30/2021 Insurance Payer Benefit Plan Subscriber ID Effective Phone Address Typ e / Group Dates ACCESS TPA [employer]ET[employer] [id number] 2022-Prese [phone] [address] c[address] NETWORK [place] nt [id number] [place] [address] Care Teams Memorial Adviser Relationship Specialty Start Date End Date Klever Camargo MD PCP - General Urology 04/09/[address] [place] [phone]
[2022-07-30 20:58] LABS: Urine Blood 3+ (Negative); Urine Glucose Negative (Negative); Urine Protein Negative (Negative); Urine pH 8.5 (5.0-7.0)
[2022-07-30 21:03] LABS: Absolute Lymphocytes (CBC) 1.6 K/uL (0.7-4.9); Hematocrit 39.3 % (39.6-49.0); Lymphocytes % 18.7 % (15.3-44.8); MCV 87.1 fL (80-100); MPV 7.4 fL (7.6-11.3); RBC Red Blood Cell Count 4.51 M/uL (4.33-5.43)
[2022-07-30 21:05] LABS: Urine Bacteria None Seen /HPF (<20); Urine Mucus Slight /HPF (None Seen); Urine RBC >50 /HPF (None Seen)
[2022-07-30 21:18] LABS: Albumin 3.7 g/dL (3.4-5.0); Bilirubin Total 0.6 mg/dL (0.2-1.0); Potassium 3.7 mmol/L (3.5-5.1); Protein, Total 7.1 g/dL (6.4-8.2)
--- NOTE | 2022-07-30 21:22 | RAD REPORT ---
EXAM DESCRIPTION: CT - Stone Protocol - 07/30/2022 9:06 pm CLINICAL HISTORY: LLQ pain COMPARISON: Abdomen Pelvis W Contrast dated 11/16/2021; CTANGIO AORTA FOR DISSECTION dated 0 TECHNIQUE: Axial 3 mm thick images were obtained without oral or IV contrast. The [id number] span s the entirety of the system including uppermost abdomen and lung bases. All CT scans are performed using dose optimization technique as appropriate and may include automated exposure control or mA/KV adjustment according to patient size. FINDINGS: Mild left-sided hydronephrosis of the pelvis, calices and proximal left ureter noted secon d to a 3 millimeter mid left ureter calcification. No additional ureteral calculi. No nonobstructing calculus on the left. A 1.7 centimeter rounded mass in the posterior mid left kidney is slightly hype rdense relative to the on opacified parenchyma. Similar sized mass was seen October 2021. This could be a high protein content cyst. A 14 mm enhancing focus in the upper pole left kidney on the October exam ination is isodense on the current examination. . Isodense masses and pyelonephritis are not excluded on a stone protocol CT scan. No significant adrenal finding. No urinary bladder suspicious finding. Imaged portions of the liver, spleen and pancreas show no suspicious findings on non-contrast imaging . No gallbladder or biliary tree abnormality identified. No suspicious bowel findings. Moderate stool volume is present in the colon. Left-sided diverticulosi s present without diverticulitis. No mass or bulky lymphadenopathy. A small fat only left inguinal hernia is present. No free air, free fluid or inflammatory stranding. No significant bony abnormality. IMPRESSION: Mild left-sided hydronephrosis secondary to a 3 mm mid left ureter calcification. There are 2 masses of the left kidney, in the upper pole and in the posterior mid pole, needing ongoi ng surveillance for further characterisation. Follow-up contrast-enhanced CT renal protocol study or contrast MRI imaging would be recommended in 6 months to monitor for any growth or change in characte ristics. Isodense masses and pyelonephritis are not excluded on stone protocol technique.
[2022-07-30] MEDS ORDERED: KETOROLAC 30 MG/ML INJ ONE (21:35)
[2022-07-30] MEDS ORDERED: MORPHINE 4 MG/ML SYR ONE (21:35)
[2022-07-30] MEDS ORDERED: MAGNESIUM SULFATE 1 gm IVPB 1 GM/100 ML BAG IV ONE (21:35)
[2022-07-30] MEDS ORDERED: ONDANSETRON 4 MG/2 ML VIAL ONE (21:35)
--- NOTE | 2022-07-30 22:45 | EDPHYS ---
Physician Documentation [facility] Name: Fermin Hanley Age: 52 yrs Sex: Male : 1970 Arrival Date: 07/30/2022 Time: 20:11 Bed 11 Private MD: ED Physician Tricia Blunt HPI: 07/30 23:03 This 52 yrs old Male presents to ER via Ambulatory with complaints of Possible Kidney kb Stone. 23:03 The patient has experienced a previous episode. The patient has not recently seen a kb physician. 23:03 The patient presents with abdominal pain in the left lower quadrant. Onset: The kb symptoms/episode began/occurred yesterday. The symptoms do not radiate. Associated signs and symptoms: none. The symptoms are described as constant. Modifying factors: The symptoms are alleviated by nothing, the symptoms are aggravated by nothing. Severity of pain: At its worst the pain was severe in the emergency department the pain has improved mildly. Patient reports left lower quadrant pain that started yesterday. Reports he has had similar pain in the past but on the right side and was diagnosed with a kidney stone at that time. Denies any urinary symptoms, nausea, vomiting, diarrhea, fever. Pain became very intense just prior to arrival. Patient took a Tylenol 3 just prior to arrival. Historical: - Allergies: 21:00 Sulfa (Sulfonamide Antibiotics); em6 - Home Meds: 21:00 losartan 25 mg Oral tab 1 tab once daily [Active]; metformin 500 mg Oral tab 1 tab 2 em6 times per day [Active]; Simvastatin Oral [Active]; - PMHx: 21:00 diabetes mellitus; High Cholesterol; em6 - PSHx: 21:00 testicular mass removal; em6 - Immunization history:: Adult Immunizations up to date. - Social history:: Smoking status: Patient denies any tobacco usage or history of. ROS: 23:02 Constitutional: Negative for fever, chills, and weight loss. kb 23:02 Abdomen/GI: Positive for abdominal pain. 23:02 All other systems are negative. Exam: 23:02 Head/Face: Normocephalic, atraumatic. ENT: Moist Mucous membranes Cardiovascular: kb Regular rate and rhythm with a normal S1 and S2. No gallops, murmurs, or rubs. No pulse deficits. Respiratory: Respirations even and unlabored. No increased work of breathing. Talking in full sentences Abdomen/GI: Soft, non-tender. No distention Back: No spinal tenderness. No costovertebral tenderness. Full range of motion. Skin: Warm, dry with normal turgor. Normal color. MS/ Extremity: Pulses equal, no cyanosis. Neurovascular intact. Full, normal range of motion. Neuro: Awake and alert, GCS 15, oriented to person, place, time, and situation. Moves all extremities. Normal gait. 23:02 Constitutional: The patient appears alert, awake, uncomfortable. Vital Signs: 20:43 BP 136 / 96; Pulse 78; Resp 18; Temp 98.2; Pulse Ox 98% on R/A; Weight 95.25 kg; Height em6 5 ft. 10 in. (177.80 cm); Pain 3/10; 22:01 BP 119 / 89; Pulse 96; Resp 18; Pulse Ox 95% on R/A; em6 20:43 Body Mass Index 30.13 (95.25 kg, 177.80 cm) em6 MDM: 20:28 Patient medically screened. kb 23:02 Data reviewed: vital signs, nurses notes. Data interpreted: Pulse oximetry: on room air kb is 95 %. Interpretation: normal. Counseling: I had a detailed discussion with the patient and/or guardian regarding: the historical points, exam findings, and any diagnostic results supporting the discharge/admit diagnosis, lab results, radiology results, the need for outpatient follow up, a urologist, to return to the emergency department if symptoms worsen or persist or if there are any questions or concerns that arise at home. 23:04 ED course: I considered the following discharge prescriptions or medication management kb in the emergency department: Flomax, Zofran, Tylenol 3 but patient already has those from November when he had a previous kidney stone. Antibiotics considered but urine is negative for infection; History obtained from: pt and spouse. 23:06 Differential diagnosis: diverticulitis, Ureterolithiasis, urinary tract infection. kb 07/30 20:30 Order name: CBC with Diff; Complete Time: 21:20 kb 07/30 20:30 Order name: CMP; Complete Time: 21:20 kb 07/30 20:30 Order name: Lipase; Complete Time: 21:20 kb 07/30 20:30 Order name: Urine Microscopic Only; Complete Time: 21:20 kb 07/30 20:30 Order name: CT Stone Protocol; Complete Time: 21:23 kb 07/30 20:58 Order name: Urine Dipstick-Ancillary; Complete Time: 21:00 EDMS 07/30 20:30 Order name: IV Saline Lock; Complete Time: 21:01 kb 07/30 20:30 Order name: Labs collected and sent; Complete Time: 21: kb 07/30 20:30 Order name: Urine Dipstick-Ancillary (obtain specimen); Complete Time: 21: kb Administered Medications: 21:37 Drug: Magnesium Sulfate 1 grams Route: IVPB; Infused Over: 1 hrs; Site: right em6 antecubital; 22:37 Follow up: Response: No adverse reaction; IV Status: Completed infusion em6 21:37 Not Given (Patient Refused): morphine 4 mg IVP once over 4 mins em6 21:37 Not Given (Patient Refused): Zofran (Ondansetron) 4 mg IVP once; over 2 minutes em6 21:37 Not Given (Patient Refused): Ketorolac 15 mg IVP once em6 Disposition Summary: 07/30/22 22:45 Discharge Ordered Location: Home kb Condition: Stable kb Diagnosis - Calculus of kidney kb Followup: kb - With: Emergency Department - When: As needed - Reason: Worsening of condition Followup: kb - With: Private Physician - When: 2 - 3 days - Reason: Recheck today's complaints, Continuance of care, Re-evaluation by your physician Discharge Instructions: - Discharge Summary Sheet kb - Kidney Stones, [id number] kb Forms: - Medication Reconciliation Form kb - Thank You Letter kb - Antibiotic Education kb - Prescription Opioid Use kb Prescriptions: - Diclofenac Sodium 75 mg Oral tablet,delayed release (DR/EC) - take 1 tablet by ORAL route 2 times per day As needed; 30 tablet; Refills: 0, kb Product Selection Permitted Signatures: Dispatcher [employer] Carrie Grier FNP-C FNP-Ckb Martinez, Erika, RN RN em6
--- NOTE | 2022-07-30 22:45 | ER ---
Nurse's Notes [facility] Name: Fermin Hanley Age: 52 yrs Sex: Male : 1970 Arrival Date: 07/30/2022 Time: 20:11 Bed 11 Private MD: Diagnosis: Calculus of kidney Presentation: 07/30 20:43 Chief complaint: Patient states: " I been having pain in my left lower abdomen. i have em6 history of kidney stones and kidney cancer in the left kidney. I called [facility] before coming, but the pain was intense.". Coronavirus screen: Client denies travel out of the [place] in the last 14 days. Ebola Screen: Patient negative for fever greater than or equal to 101.5 degrees Fahrenheit, and additional compatible Ebola Virus Disease symptoms. Initial Sepsis Screen: Does the patient meet any 2 criteria? No. Patient's initial sepsis screen is negative. Does the patient have a suspected source of infection? No. Patient's initial sepsis screen is negative. Risk Assessment: Do you want to hurt yourself or someone else? Patient reports no desire to harm self or others. Onset of symptoms was July 29, 2021. 20:43 Acuity: PEREZ 3 em6 20:43 Method Of Arrival: Ambulatory em6 Historical: - Allergies: 21:00 Sulfa (Sulfonamide Antibiotics); em6 - Home Meds: 21:00 losartan 25 mg Oral tab 1 tab once daily [Active]; metformin 500 mg Oral tab 1 tab 2 em6 times per day [Active]; Simvastatin Oral [Active]; - PMHx: 21:00 diabetes mellitus; High Cholesterol; em6 - PSHx: 21:00 testicular mass removal; em6 - Immunization history:: Adult Immunizations up to date. - Social history:: Smoking status: Patient denies any tobacco usage or history of. Screenin:43 [facility] ED Fall Risk Assessment (Adult) History of falling in the last 3 months, em6 including since admission No falls in past 3 months (0 pts) Confusion or Disorientation No (0 pts) Intoxicated or Sedated No (0 pts) Impaired Gait No (0 pts) Mobility Assist Device Used No (0 pt) Altered Elimination No (0 pt) Score/Fall Risk Level 0 - 2 = Low Risk Oriented to surroundings, Maintained a safe environment, Educated pt \\T\\ family on fall prevention, incl call for assistance when getting out of bed, Assessed \\T\\ reinforced patient's understanding of fall precautions, Provided non-skid footwear, Hourly rounding (assess needs \\T\\ fall precautionary measures) done, Used ambulatory aids as needed (educated on \\T\\ assisted with), Used gait belt as appropriate. Abuse screen: Denies threats or abuse. Nutritional screening: No deficits noted. Tuberculosis screening: No symptoms or risk factors identified. Assessment: 20:42 General: Appears in no apparent distress. Behavior is cooperative. Pain: Complains of em6 pain in left lower quadrant Pain does not radiate. Pain currently is 3 out of 10 on a pain scale. Quality of pain is described as sharp. Neuro: Level of Consciousness is awake, alert, obeys commands, Oriented to person, place, time, situation. Cardiovascular: Patient's skin is warm and dry. Respiratory: Airway is patent Respiratory effort is even, unlabored, Respiratory pattern is regular, symmetrical. GI: Abdomen is non-distended, Bowel sounds present X 4 quads. Abd is soft and non tender X 4 quads. : No signs and/or symptoms were reported regarding the genitourinary system. EENT: No signs and/or symptoms were reported regarding the EENT system. Derm: No signs and/or symptoms reported regarding the dermatologic system. Musculoskeletal: Circulation, motion, and sensation intact. Range of motion: intact in all extremities. 21:50 Reassessment: Patient appears in no apparent distress at this time. No changes from em6 previously documented assessment. Patient and/or family updated on plan of care and expected duration. Pain level reassessed. Patient is alert, oriented x 3, equal unlabored respirations, skin warm/dry/pink. 22:50 Reassessment: Patient appears in no apparent distress at this time. No changes from em6 previously documented assessment. Patient and/or family updated on plan of care and expected duration. Pain level reassessed. Patient is alert, oriented x 3, equal unlabored respirations, skin warm/dry/pink. Vital Signs: 20:43 BP 136 / 96; Pulse 78; Resp 18; Temp 98.2; Pulse Ox 98% on R/A; Weight 95.25 kg; Height em6 5 ft. 10 in. (177.80 cm); Pain 3/10; 22:01 BP 119 / 89; Pulse 96; Resp 18; Pulse Ox 95% on R/A; em6 20:43 Body Mass Index 30.13 (95.25 kg, 177.80 cm) em6 ED Course: 20:11 Patient arrived in ED. [email or web address] 20:17 [facility]C [facility] kb 20:17 Tricia Blunt MD is Attending Physician. kb 20:34 Kenzie Wolff RN is Primary Nurse. em6 20:40 Inserted saline lock: 20 gauge in left antecubital area, using aseptic technique. Blood em6 collected. 20:42 Arm band placed on. em6 20:42 Bed in low position. Call light in reach. Side rails up X 1. Pulse ox on. NIBP on. Warm em6 blanket given. 21:00 Triage completed. em6 21:01 CBC with Diff Sent. em6 21:01 CMP Sent. em6 21:01 Lipase Sent. em6 21:01 Urine Microscopic Only Sent. em6 21:08 CT Stone Protocol In Process Unspecified. EDMS 22:56 No provider procedures requiring assistance completed. IV discontinued, intact, em6 bleeding controlled, No redness/swelling at site. Pressure dressing applied. Administered Medications: 21:37 Drug: Magnesium Sulfate 1 grams Route: IVPB; Infused Over: 1 hrs; Site: right em6 antecubital; 22:37 Follow up: Response: No adverse reaction; IV Status: Completed infusion em6 21:37 Not Given (Patient Refused): morphine 4 mg IVP once over 4 mins em6 21:37 Not Given (Patient Refused): Zofran (Ondansetron) 4 mg IVP once; over 2 minutes em6 21:37 Not Given (Patient Refused): Ketorolac 15 mg IVP once em6 Medication: 22:56 VIS not applicable for this client. em6 Outcome: 22:45 Discharge ordered by . kb 22:56 Discharged to home ambulatory. em6 22:56 Condition: stable 22:56 Discharge instructions given to patient, Instructed on discharge instructions, follow up and referral plans. medication usage, Demonstrated understanding of instructions, follow-up care, medications, Prescriptions given X 1. 22:56 Patient left the ED. em6 Signatures: Dispatcher [employer] EDMS Carrie David FNP-C SEO ASSISTANT-Ckb Johana Peters [email or web address] Kenzie Wolff, RN RN em6
[2022-07-30 23:40] VITALS: TEMP 98.2
[2022-07-30 23:41] VITALS: BP 119/89; O2SAT 95
== END 2022-07-30 22:56 | disposition home or self-care (01) ==
LOC: ER 20:08
DX: N20.0 Calculus of kidney (principal); E11.9 Type 2 diabetes mellitus without complications; E78.00 Pure hypercholesterolemia, unspecified; Z88.2 Allergy status to sulfonamides
CPT/HCPCS: 96365; 85025; 36415; 83690; 80053; 76377; 74176; 99284; J3475; 81003; 81015; J2405

== ENCOUNTER 2024-04-21 16:48 | Inpatient (IN) | payer BC, OTHER ==
--- OUTSIDE RECORDS SUMMARY | 2024-04-21 16:52 | XMS REPORT | Clinical Summary ---
Author Name Unknown Organization [facility] Address [address] [place] [address] Care Team Providers Care Skidder Name Role Phone Klever Camargo MD Primary Care Provider [phone] Allergies No known active allergies Medications Medication Sig Dispensed Refills Start Date End Date Status atorvastatin (LIPITOR) 40 mg tablet Take 1 tablet (40 mg) by mouth daily. 02/09/2021 Active losartan (COZAAR) 25 mg tablet Take 1 tablet (25 mg) by mouth daily. 02/09/2021 Active metFORMIN (GLUCOPHAGE) 500 mg tablet Take 1 tablet (500 mg) by mouth 2 (two) times a day with meals. 02/09/2021 Active multivitamin tab tablet Take 1 tablet by mouth daily. Active Active Problems Problem Noted Date Diagnosed Date Clear cell carcinoma of left kidney 09/24/2022 Angiomyolipoma of left kidney 09/24/2022 Encounter for preprocedural examination 08/10/19 23 Hydronephrosis with renal an d ureteral calculous obstruction 08/10/2022 Overview: Added automatically from request for surgery [id number] Nephrolithiasis 07/29/2022 Renal mass 05/03/2022 Obstructive sleep apnea syndrome 05/03/2022 Diabetes mellitus 05/03/2022 Type 2 diabetes mellitus 05/03/2022 Encounters Date Type Department Care Team Description 04/20/2024 Telephone MD Coulter Beaumont [address] [place], [place] [address] Germaine Rojas RN 09/19/2023 3:00 PM RUNSTITCHING MACHINE OPERATOR Follow[facility] [address] [place] [address] Klever Camargo MD Clear cell carcinoma of left kidney 09/19/2023 11:55 AM RUNSTITCHING MACHINE OPERATOR Ancillary Procedure MD [place] [address] [place] [address] Liliana Berry PA Clear cell carcinoma of left kidney 09/19/2023 11:45 AM RUNSTITCHING MACHINE OPERATOR Ancillary Procedure [facility] [address] [place] [address] Liliana Berry PA Clear cell carcinoma of left kidney 09/19/2023 Travel 07/28/[address] [address] Germaine Rojas, RN 06/28/[address] [address] Germaine Rojas, RN 06/14/[address] [address] Germaine Rojas, RN after 04/22/2023 Immunizations Name Administration Dates Next Due Moderna SARS-CoV-2 Vaccination 10/03/2020,2020 Surgical History Surgery Date Site/Laterality Comments INCISION AND DRAINAGE PERIRECTAL ABSCESS 07/25/2015 - 07/24/2016 under anesthesia WI CYSTO/URETERO W/LITHOTRIPSY &INDWELL STENT INSRT 08/18/2022 Genitalia/Left Procedure: CYSTOURETHROSCOPY WITH URETEROROSCOPY &/OR PYELOSCOPY, W/ LITHOTRIPSY AND INSERTION OF INDWELLING STENT; Surgeon: Klever Camargo MD; Location: [facility]; Service: UROLOGY WI FLUOROSCOPY UP TO 1 HOUR PHYSICIAN/QHP TIME 08/18/2022 Left Procedure: PORTABLE FLOUROSCOPY (C-ARM); Surgeon: Klever Camargo MD; Location: [facility]; Service: UROLOGY WI UROGRAPHY RETROGRADE WITH/WO KUB 08/18/2022 Left Procedure: RETROGRADE UROGRAPHY; Surgeon: Klever Camargo MD; Location: [facility]; Service: UROLOGY Medical History Medical History Date Comments Hyperlipidemia Probably 10 years ago Irregular heart beat At [facility] Hearing loss 6-7 yrs ago Probably just ag ing Functional visual loss 4yrs ago Got conta cts Swallowing problem 4yrs ago Planned to [place] ve it checked out and changed diet due to diabetes. No issues since then. Dependence on continuous pos itive airway pressure ventilation 15 years ago? Renal stone October 2021 How we discovere d masses in kidney Rheumatoid arthritis 15 yrs? Right Shoul brady Diabetes mellitus January 2021 Essential (primary) hypertension Renal mass 05/03/2022 Family History Medical History Relation Name Comments Leukemia Father Edward Hanley Relation Name Status Comments Father Edward Hanley Social History Tobacco Use Types Packs/Day Years Used Date Smoking Tobacco: Never Passive Smoke Exposure: Past Smokeless Tobacco: Never Tobacco Cessation:Counseling Given: Not Answered Alcohol Use Standard Drinks/Week Comments Never 0 (1 standard drink = 0.6 oz pur e alcohol) Sex and Gender Information Value Date Recorded Sex Assigned at Not on file Gender Identity Not on file Sexual Orientation Not on file Job Start Date Occupation Industry Not on file Not on file Not on file Obstetrics History Last Filed Vital Signs Vital Sign Reading Time Taken Comments Blood Pressure 121/81 09/19/2023 2:18 PM RUNSTITCHING MACHINE OPERATOR Pulse 70 09/19/2023 2:18 PM RUNSTITCHING MACHINE OPERATOR Temperature 36.8 C (98.2 F) 09/19/2023 2:18 PM CS T Respiratory Rate 16 09/19/2023 2:18 PM RUNSTITCHING MACHINE OPERATOR Oxygen Saturation 98% 09/19/2023 2:18 PM RUNSTITCHING MACHINE OPERATOR Inhaled Oxygen Concentration - - Weight 99.7 kg (219 lb 12.8 oz) 09/19/2023 2:15 PM RUNSTITCHING MACHINE OPERATOR Height - - Body Mass Index 31.29 09/20/2022 3:56 PM RUNSTITCHING MACHINE OPERATOR Plan of Treatment Upcoming Encounters Date Type Department Care Team (Late st Contact Info) Description 09/20/2024 8:30 AM RUNSTITCHING MACHINE OPERATOR Lab [facility] [address] [facility] [address] [place] [address] Liliana Berry PA [address] [place] [address] [email or web address] 09/20/2024 9:30 AM RUNSTITCHING MACHINE OPERATOR Ancillary Procedure [facility] [address] [place] [address] Liliana Berry PA [facility] [place] [address] [email or web address] 09/20/2024 9:45 AM RUNSTITCHING MACHINE OPERATOR Ancillary Procedure [place] [address] [address] Liliana Berry PA [facility] [place], [place] [id number] [email or web address] 09/20/2024 2:00 PM RUNSTITCHING MACHINE OPERATOR [facility] [address] [place] [address] Klever Camargo MD [address] [place] [id number] [email or web address] Health Maintenance Due Date Last Done Comments Pneumococcal Vaccine: Pediat rics (0 to 5 Years) and At-Risk Patients (6 to 64 Years) (1 of 2 - PCV) 1975 COVID-19 Vaccine ( season) 03/25/202406/2021, 08/30/2020 Influenza Vaccine (#1) 2024 Procedures Procedure Name Priority Date/Time Associated Diagnosis Comments CT ABDOMEN W WO CONTRAST Routine 09/19/2023 1:42 PM RUNSTITCHING MACHINE OPERATOR Clear cell carcinoma of left kidney XR CHEST 2 VW Routine 09/19/2023 10:56 AM RUNSTITCHING MACHINE OPERATOR Clear cell carcinoma of left kidney .CBC Routine 09/19/2023 10:05 AM RUNSTITCHING MACHINE OPERATOR Clear cell carcinoma of left kidney COMPREHENSIVE METABOLIC PANEL Routine 09/19/2023 10:05 AM RUNSTITCHING MACHINE OPERATOR Clear cell carcinoma of left kidney LACTATE DEHYDROGENASE Routine 09/19/2023 10:05 AM RUNSTITCHING MACHINE OPERATOR Clear cell carcinoma of left kidney COMPLETE BLOOD COUNT W/ DIFFERENTIAL Routine 09/19/2023 10:05 AM RUNSTITCHING MACHINE OPERATOR Clear cell carcinoma of left kidney after 04/22/2023 Results * CT Abdomen with and without Contrast (09/19/2023 1:42 PM RUNSTITCHING MACHINE OPERATOR) Anatomical Region Laterality Modality Abdomen Computed Tomogra phy 09/19/2023 2:02 PM RUNSTITCHING MACHINE OPERATOR Impressions 09/19/2023 2:31 PM RUNSTITCHING MACHINE OPERATOR ACTIONABLE ITEMS/RECOMMENDATIONS*: None. Narrative 09/19/2023 2:31 PM RUNSTITCHING MACHINE OPERATOR FULL RESULT: Examination: CT ABDOMEN W WO CONTRAST on 09/19/2023 1:42 PM. Clinical History: Clear cell carcinoma of left kidney Indication: Surveillance left renal cell carcinoma S/P ablation. Comparison: None. Technique: CT ABDOMEN W WO CONTRAST. FINDINGS: ABDOMEN AND PELVIS FINDINGS: Hepatobiliary/ Spleen: Liver and spleen are normal. The biliary tree is normal. The small hepatic artery node and periportal nodes are stable and nonspecific. Gastrointestinal Tract/ Peritoneum: The gastrointestinal tract is within normal range. There is diverticular disease in the descending and right colon Pancreas/Adrenal Glands /Kidneys/ Retroperitoneum: Ablation defect in the upper pole of the right kidney and in the interpolar region posteriorly have also resolved. There is no residual disease and no change in the two subcentimeter cysts in the kidneys.. There is no adenopathy. Pancreas is normal. Adrenals are normal. Musculoskeletal: There are degenerative changes. There is no suspicious lesion. Procedure Note Alma Han MD - 09/19/2023 FULL RESULT: Examination: CT ABDOMEN W WO CONTRAST on 09/19/2023 1:42 PM. Clinical History: Clear cell carcinoma of left kidney Indication: Surveillance left renal cell carcinoma S/P ablation. Comparison: None. Technique: CT ABDOMEN W WO CONTRAST. FINDINGS: ABDOMEN AND PELVIS FINDINGS: Hepatobiliary/ Spleen: Liver and spleen are normal. The biliary tree isnormal. The small hepatic artery node and periportal nodes are stable andnonspecific. Gastrointestinal Tract/ Peritoneum: The gastrointestinal tract is withinnormal range. There is diverticular disease in the descending and rightcolon Pancreas/Adrenal Glands /Kidneys/ Retroperitoneum: Ablation defect in theupper pole of the right kidney and in the interpolar region posteriorlyhave also resolved. There is no residual disease and no change in the twosubcentimeter cysts in the kidneys.. There is no adenopathy. Pancreas is normal. Adrenals are normal. Musculoskeletal: There are degenerative changes. There is no suspiciouslesion. IMPRESSION: ACTIONABLE ITEMS/RECOMMENDATIONS*: None. Liliana GONSALES IMKyle CT ORDERABLES * X-ray Chest 2 Views (09/19/2023 10:56 AM RUNSTITCHING MACHINE OPERATOR) Anatomical Region Laterality Modality Chest Digital Radiogra phy 09/19/2023 10:5 9 AM RUNSTITCHING MACHINE OPERATOR Impressions 09/19/2023 10:59 AM RUNSTITCHING MACHINE OPERATOR No acute cardiopulmonary or metastatic disease. ACTIONABLE ITEMS/RECOMMENDATIONS*: None. Narrative 09/19/2023 10:59 AM RUNSTITCHING MACHINE OPERATOR FULL RESULT: Examination: XR CHEST 2 VW on 09/19/2023 10:56 AM. Clinical History: Clear cell carcinoma of left kidney Indication: Evaluate Baseline Disease State Comparison: 03/24/2023 Technique: Posteroanterior, lateral and dual-energy radiographs of the chest Findings: Support Apparatus: None. Lungs/Pleura/Mediastinum: No evidence of focal lung opacities. No pneumothorax. Cardiomediastinal silhouette is stable. Procedure Note Chong Chavez MD - 09/19/2023 FULL RESULT: Examination: XR CHEST 2 VW on 09/19/2023 10:56 AM. Clinical History: Clear cell carcinoma of left kidney Indication: Evaluate Baseline Disease State Comparison: 03/24/2023 Technique: Posteroanterior, lateral and dual-energy radiographs of thechest Findings: Support Apparatus: None. Lungs/Pleura/Mediastinum: No evidence of focal lung opacities. Nopneumothorax. Cardiomediastinal silhouette is stable. IMPRESSION: No acute cardiopulmonary or metastatic disease. ACTIONABLE ITEMS/RECOMMENDATIONS*: None. Liliana GONSALES IMG DIAGNOSTIC IMAGI NG ORDERABLES * (ABNORMAL) .CBC (09/19/2023 10:05 AM [facility]) White Blood Cell 4.6 4.1 - 10.5 K/uL 09/19/2023 10:[address] [facility] Red Blood Cell 4.93 4.30 - 6.04 M/uL 09/19/2023 10:[address] [facility] Hemoglobin 14.9 13.3 - 17.4 g/dL 09/19/2023 10:[address] [facility] Hematocrit 43.9 39.5 - 51.8 % 09/19/2023 10:[address] [facility] Mean Cell Volume 89 82 - 99 fL 09/19/19 10:[address] [facility] Mean Cell Hemoglobin 30.2 26.6 - 33.2 pg 09/19/2023 10:[address] [facility] Mean Cell Hemoglobin Concentration 33.9 31.1 - 35.2 g/dL 09/19/2023 10:[address] [facility] RDW-SD 40.0 37.5 - 49.7 fL 09/19/2023 10:[address] [facility] Red Cell Diameter Width 12.2 11.6 - 15.5 % 09/19/2023 10:[address] [facility] Platelet 245 160 - 397 K/uL 09/19/2023 10:[address] [facility] Mean Platelet Volume 8.8(L) 9.1 - 12.6 fL 09/19/2023 10:[address] [facility] Neutrophil % 51.9 43.2 - 72.7 % 09/19/2023 10:[address] [facility] Lymphocyte % 33.0 16.8 - 46.2 % 09/19/2023 10:[address] [facility] Monocyte % 7.9 5.1 - 12.5 % 09/19/2023 10:[address] [facility] Eosinophil % 5.5 0.4 - 6.3 % 09/19/2023 10:[address] [facility] Basophil % 1.5(H) 0.2 - 1.4 % 09/19/2023 10:[address] [facility] IGRE % 0.2 0.1 - 1.5 % 09/19/2023 10:[address] [facility] Comment:The IGRE% includes M etamyelocytes, Myelocytes and Promyelocytes. Neutrophil Abs 2.36 1.95 - 7.25 K/uL 09/19/2023 10:[address] [facility] Lymphocyte Abs 1.50 1.01 - 3.24 K/uL 09/19/2023 10:[address] [facility] Monocyte Abs 0.36 0.24 - 0.85 K/uL 09/19/2023 10:[address] [facility] Eosinophil Abs 0.25 0.02 - 0.50 K/uL 09/19/2023 10:[address] [facility] Basophil Abs 0.07 0.02 - 0.09 K/uL 09/19/2023 10:[address] [facility] IG Abs 0.01 0.01 - 0.12 K/uL 09/19/2023 10:[address] [facility] Blood Venipuncture / Unknown 09/19/2023 10:05 AM RUNSTITCHING MACHINE OPERATOR 09/19/2023 10:05 AM [facility] Liliana GONSALES LAB BLOOD ORDERABLES Performing Organization Address City/State/[facility] Co de Phone Number [facility] [address] [facility], [facility] [address] [place] [address] * (ABNORMAL) Comprehensive Metabolic Panel (09/19/2023 10:05 AM [facility]) Bilirubin Total 0.7 <=1.2 mg/dL 09/19/2023 10:[address] [facility] Comment:Indocyanine Green (I CG) may cause falsely elevated bilirubin results. Total and direct bilirubin must not be measured from samples containing indocyanine green. False elevation of total bilirubin can be seen in patients with IgG concentrations above 28 g/L. Bilirubin Direct <0.2 <=0.3 mg/dL 09/19/2023 10:[address] [facility] Comment:Indocyanine Green (I CG) may cause falsely elevated bilirubin results. Total and direct bilirubin must not be measured from samples containing indocyanine green. Bilirubin Indirect 2023 10:[address] [facility] Comment:Unable to calculate Indirect Bilirubin result due to some parameters are outside reportable range eGFR 85 >=60 mL/min/1. 73 sq. m 09/19/2023 10:[address] [facility] Comment: The eGFRcr is calculated with the 2020 CKD-EPI creatinine equation using creatinine, patient's age, and sex for adults 18 years of age and older. Other factors, especially muscle mass, may affect accuracy and need to be considered. According to the Kidney Disease: Improving Global Outcomes (KDIGO) CKD Work Group 2012 Clinical Practice Guideline, chronic kidney disease (CKD) is defined as the abnormalities of kidney structure or function, present for more than 3 months, with implications for health. CKD should be classified by cause, GFR category, and albuminuria category. KDIGO guidelines provide the following GFR categories. Stage / Description / GFR mL/min/1.73 m2: G1* / Normal or high / >= 90 G2* / Mildly decreased / 60-89 G3a / Mildly to moderately decreased / 45-59 G3b / Moderately to severely decreased / 30-44 G4 / Severely decreased / 15-29 G5 / Kidney failure / <15 *In the absence of evidence of kidney damage, neither G1 nor G2 fulfill criteria for CKD. Tot Protein 7.2 6.4 - 8.3 gm/dL 09/19/2023 10:[address] [facility] Calcium Level Total 9.9 8.2 - 10.2 mg/dL 09/19/2023 10:[address] [facility] Alkaline Phosphatase 87 40 - 129 U/L 09/19/2023 10:[address] [facility] Albumin Level 4.5 3.5 - 5.2 gm/dL 09/19/2023 10:[address] [facility] AST 15 <=40 U/L 09/19/2023 10:[address] [facility] ALT 18 <=41 U/L 09/19/2023 10:[address] [facility] Sodium Level 140 136 - 145 mmol/L 09/19/2023 10:[address] [facility] Potassium Level 4.7(H) 3.4 - 4.5 mmol/L 09/19/2023 10:[address] [facility] Chloride 106 98 - 107 mmol/L 09/19/2023 10:[address] [facility] CO2 25 22 - 29 mmol/L 09/19/2023 10:[address] [facility] Anion Gap 9 4 - 14 mmol/L 09/19/2023 10:[address] [facility] Creatinine 1.04 0.67 - 1.17 mg/dL 09/19/2023 10:[address] [facility] BUN 15 6 - 23 mg/dL 09/19/2023 10:[address] [facility] Glucose Level 93 70 - 99 mg/dL 09/19/2023 10:[address] [facility] Comment: Effective 02/18/16, the glucose reference intervals have been updated based on [place] Diabetes Association guidelines (Standards of Medical Care in Diabetes 2016. Diabetes Care 2016; 39: S13-S22). Fasting blood glucose: Normal: 70-99 mg/dL Impaired fasting glucose (increased risk for diabetes or pre-diabetes): 100-125 mg/dL Diabetes mellitus: >/=126 mg/dL Random blood glucose: Normal: 70-199 mg/dL Note: Random glucose >100 mg/dL is associated with increased risk for diabetes. Blood Venipuncture / Unknown 09/19/2023 10:05 AM RUNSTITCHING MACHINE OPERATOR 09/19/2023 10:05 AM RUNSTITCHING MACHINE OPERATOR Liliana GONSALES LAB BLOOD ORDERABLES Performing Organization Address [facility] Co de Phone Number [facility] [address] [facility], [facility] [address] [place] [address] * LDH (09/19/2023 10:05 AM RUNSTITCHING MACHINE OPERATOR) LDH 157 135 - 225 U/L 09/19/2023 10:[address] [facility] Blood Venipuncture / Unknown 09/19/2023 10:05 AM RUNSTITCHING MACHINE OPERATOR 09/19/2023 10:05 AM [facility] Narrative [facility] - 09/19/2023 10:28 AM RUNSTITCHING MACHINE OPERATOR Results greater than 1651 U/L may not be reliable due to matrix effect with extended dilution as it exceeds the cone runner's recommended limit. Caution should be exercised when interpreting such values and done in conjunction with clinical context. Liliana GONSALES LAB BLOOD ORDERABLES [facility] [address] [facility], [facility] [address] [place] [address] after 04/22/2023 Advance Directives * Full Code (Latest Code Status on File) Date Activated Date Inactivated Comments 09/20/2022 3:11 PM 09/21/2022 1:33 PM * Full Code Date Activated Date Inactivated Comments 08/18/2022 1:06 PM 08/18/2022 4:11 PM Care Teams Skidder Relationship Specialty Start Date End Date Klever Camargo MD [address] [place] [address] [email or web address] PCP - General Urology 04/09/22
[2024-04-21] MEDS ORDERED: NA CHLORIDE 0.9% 3,000 ML ONE (17:10)
[2024-04-21 18:02] LABS: PTT, Activated Partial Thromb 35.6 SECONDS (24.3-36.9); Protime INR 1.17
[2024-04-21 18:03] LABS: Absolute Basophils 0.1 K/uL (0-0.5); Absolute Lymphocytes (CBC) 0.8 K/uL (0.7-4.9); Absolute Monocytes 0.6 K/uL (0.1-1.3); Absolute Neutrophil 10.9 K/uL (1.8-8.0); Basophils % 0.5 % (0-1.3); Eosinophils % 0.1 % (0-4.4); Hematocrit 43.9 % (39.6-49.0); Hemoglobin 14.9 g/dL (13.6-17.9); Lymphocytes % 6.2 % (15.3-44.8); MCH 30.2 pg (27.0-35.0); MPV 7.5 fL (7.6-11.3); Monocytes % 5.2 % (3.3-12.3); Nucleated Red Blood Cells % 0.1 % (0-0); Platelets 237 thou/uL (152-406); RBC Red Blood Cell Count 4.93 M/uL (4.33-5.43); Red Cell Distribution Width 13.2 % (12.1-15.2)
[2024-04-21 18:05] LABS: ALT/SGPT 24 U/L (16-61); Albumin 3.6 g/dL (3.4-5.0); Albumin/Globulin Ratio 0.8 (1.1-1.8); Alkaline Phosphatase 90 U/L (45-117); Anion Gap 7.8 mEq/L (5.0-15.0); BUN Blood Urea Nitrogen 12 mg/dL (7-18); Bicarbonate 25 mEq/L (21-32); Bilirubin Total 1.7 mg/dL (0.2-1.0); Globulin 4.3 g/dL (2.3-3.5); Glomerular Filtration Rate 72 ml/min (=/>90); Glucose Level 137 mg/dL (74-106); Potassium 3.8 mEq/L (3.5-5.1); Protein, Total 7.9 g/dL (6.4-8.2); Sodium Level 135 mEq/L (136-145)
[2024-04-21 18:06] LABS: AST/SGOT < 10 U/L (15-37)
[2024-04-21 19:18] LABS: Specific Gravity 1.026 (1.005-1.030); Sqamous Epithelial None Seen /HPF (None Seen); Urine Bacteria None Seen /HPF (<20); Urine Bilirubin 2+ (Negative); Urine Blood 2+ (Negative); Urine Clarity Extremely Turbid (Clear); Urine Color Dark-Yellow (Yellow); Urine Crystals Unidentified Few /HPF (None Seen); Urine Culture Reflex Order REFLEXED; Urine Glucose NEGATIVE (Negative); Urine Ketones NEGATIVE (Negative); Urine Microscopic Reflex YN ORDER UMIC; Urine Mucus 1+ /HPF (None Seen); Urine Nitrite 2+ (Negative); Urine Protein 1+ (Negative); Urine RBC 21-50 /HPF (None Seen); Urine Urobilinogen 2+ (Normal); Urine WBC >50 /HPF (<5); Urine WBC Clump Rare /HPF (None Seen); Urine pH 6.5 (5.0-7.0)
--- NOTE | 2024-04-21 20:21 | RAD REPORT ---
Stone Protocol CLINICAL INDICATION: Male, 54 years old.HEMATURIA TECHNIQUE: CT abdomen and pelvis was performed, without IV contrast, as per department protocol using a CT stone protocol. Axial, sagittal and coronal reconstructions were obtained. One or more of the following dose reduction techniques were used: Automated exposure control, adjustment of the mA and/o r kV according to the patient size, and/or iterative reconstruction. Unless otherwise specified, incidental findings do not require dedicated imaging follow-up. [id number]. IV CONTRAST: Not administered. COMPARISON: None FINDINGS: The lack of intravenous contrast limits the sensitivity of this exam for evaluation of solid visceral organs, vascular structures, and retroperitoneum. LOWER CHEST: The visualized lung bases are clear. LIVER: Hepatic steatosis GALLBLADDER/BILE DUCTS: No biliary ductal dilatation.? PANCREAS: No mass, ductal dilation, or igor-pancreatic fluid. SPLEEN: Normal size. No focal lesion. ADRENALS: Normal; no mass. KIDNEYS AND URETERS: Post ablation changes to the left kidney. No hydronephrosis. 3 mm stone in the d istal right ureter. Intermediate attenuation lesion along the interpolar aspect of the left kidney which is separate from the ablated lesion noted. URINARY BLADDER: Bladder wall thickening and stranding. GASTROINTESTINAL TRACT: Stomach is non-dilated. Small bowel has normal course and caliber. No colonic wall thickening or pericolonic inflammatory changes. PERITONEUM: No free fluid. Tiny fat-containing umbilical hernia. ABDOMINAL AORTA AND OTHER VESSELS: Normal caliber aorta and IVC. REPRODUCTIVE ORGANS: Prostatomegly. MUSCULOSKELETAL: No acute or suspicious osseous abnormality. ADDITIONAL FINDINGS: None. IMPRESSION: 1. 3 mm nonobstructing stone in the distal right ureter. Bladder wall thickening and stranding. This could reflect cystitis. 2. Intermediate attenuation left renal lesion is indeterminate which has likely been previously evalu ated at an outside facility. The patient has had an interval left renal ablation.
[2024-04-21] MEDS ORDERED: IBUPROFEN 400 MG TAB ONE (20:42)
[2024-04-21] MEDS ORDERED: CEFTRIAXONE 1000 MG/VIAL ONE (20:42)
--- NOTE | 2024-04-21 20:49 | ER ---
Nurse's Notes [facility] Name: Fermin Hanley Age: 54 yrs Sex: Male : 1970 Arrival Date: 04/21/2024 Time: 16:48 Bed 19 Private MD: Diagnosis: Acute cystitis with hematuria;Sepsis, unspecified organism Presentation: 04/21 17:00 Chief complaint: Patient states: went to urgent care and they think I may have a kidney ko1 infection and probably sepsis. Coronavirus screen: Ebola Screen: No symptoms or risks identified at this time. Initial Sepsis Screen: Does the patient meet any 2 criteria? No. Patient's initial sepsis screen is negative. Does the patient have a suspected source of infection? No. Patient's initial sepsis screen is negative. Risk Assessment: Do you want to hurt yourself or someone else? Patient reports no desire to harm self or others. Onset of symptoms is unknown. 17:00 Method Of Arrival: Ambulatory ko1 17:00 Acuity: PEREZ 3 ko1 Triage Assessment: 17:04 General: Appears in no apparent distress. Behavior is calm, cooperative, appropriate ko1 for age. Pain: Complains of pain in pressure in bladder. GI: No deficits noted. Historical: - Allergies: 17:04 Sulfa (Sulfonamide Antibiotics); ko1 - PMHx: 17:04 diabetes mellitus; High Cholesterol; ko1 - PSHx: 17:04 testicular mass removal; ko1 - Immunization history:: Adult Immunizations unknown. - Infectious Disease History:: Denies. - Social history:: Smoking status: Patient denies any tobacco usage or history of. Screenin:[address] [facility] ED Fall Risk Assessment (Adult) History of falling in the last 3 months, mb9 including since admission Yes- single mechanical fall (1 pt) Confusion or Disorientation Yes (5 pts) Intoxicated or Sedated No (0 pts) Impaired Gait Yes (1 pt) Mobility Assist Device Used Yes (1 pt) Altered Elimination Yes (1 pt) Score/Fall Risk Level 3 or more points = High Risk Oriented to surroundings, Maintained a safe environment, Educated pt \T\ family on fall prevention, incl call for assistance when getting out of bed. Abuse screen: Denies threats or abuse. Nutritional screening: No deficits noted. Tuberculosis screening: No symptoms or risk factors identified. Assessment: 17:40 General: Behavior is calm, cooperative. Pain: Denies pain. Neuro: [place] mb9 Agitation-Sedation Scale (RASS): 0 - Alert and Calm Level of Consciousness is awake, alert, obeys commands, Oriented to person, place, time, situation, Appropriate for age. Cardiovascular: Patient's skin is warm and dry. Rhythm is sinus tachycardia. Respiratory: Airway is patent Respiratory effort is even, unlabored, Respiratory pattern is regular, symmetrical. GI: Abdomen is round non-distended, Bowel sounds present X 4 quads. Abd is soft and non tender X 4 quads. : Reports burning with urination, hematuria. EENT: No signs and/or symptoms were reported regarding the EENT system. Derm: Skin is pink, warm \T\ dry. Musculoskeletal: Range of motion: intact in all extremities. 18:37 Reassessment: No changes from previously documented assessment. Patient and/or family mb9 updated on plan of care and expected duration. Pain level reassessed. Patient is alert, oriented x 3, equal unlabored respirations, skin warm/dry/pink. 19:00 Reassessment: ASSUMED CARE OF PT .PT SITTING IN BED WATCHING SPORTS ON HIS PHONE. NO jj7 PAIN OR DISTRESS. ALL VS STABLE BUT PT IS TACHY. General: Appears in no apparent distress. comfortable, Behavior is calm, cooperative, appropriate for age. Pain:. Pain: Denies pain. Neuro: No deficits noted. : Reports WAS HAVING PAIN WITH URINATION. SYMPTOMS HAVE RESOLVED. Vital Signs: 17:00 BP 124 / 76; Pulse 126; Resp 18; Temp 99.5; Pulse Ox 97% on R/A; ko1 17:09 Weight 99.79 kg; Height 5 ft. 8 in. ; mb9 17:40 BP 109 / 73; Pulse 126; Resp 18; Pulse Ox 98% on R/A; mb9 18:37 BP 112 / 79; Pulse 117; Resp 18; Pulse Ox 95% on R/A; mb9 19:00 BP 117 / 82; Pulse 115; Resp 20; Pulse Ox 100% ; jj7 20:00 BP 170 / 91; Pulse 76; Resp 18; Pulse Ox 94% ; cp4 21:00 BP 186 / 93; Pulse 84; Resp 18; Pulse Ox 99% ; cp4 22:00 BP 176 / 84; Pulse 82; Resp 18; Pulse Ox 99% ; cp4 17:09 Body Mass Index 33.45 (99.79 kg, 172.72 cm) mb9 ED Course: 16:51 Patient arrived in ED. im 16:53 [facility]C [facility] kb 16:53 Pierre Giraldo MD is Attending Physician. kb 17:04 Triage completed. ko1 17:04 Arm band placed on right wrist. Patient placed in an exam room, on a stretcher, on ko1 awake overnight monitor, on pulse oximetry, Patient notified of wait time. 17:07 Ashley Dawson, RN is Primary Nurse. mb9 17:07 Placed in gown. Bed in low position. Call light in reach. Side rails up X 1. Provided mb9 Education on: press call light if needing anything. Client placed on continuous cardiac and pulse oximetry monitoring. NIBP monitoring applied. residential monitor on. 17:18 EKG done, by ED staff. tm3 17:22 No provider procedures requiring assistance completed. mb9 17:30 Initial lab(s) drawn, by me, sent to lab. Inserted saline lock: 20 gauge in right mb9 antecubital area, using aseptic technique. Blood collected. Flushed with 10 mL NS. 19:01 Report given to BANG and REECE Kuhn. mb9 19:25 Primary Nurse role handed off by Ashley Dawson, REECE jl7 20:01 CT Stone Protocol In Process Unspecified. EDMS 20:38 Germaine Cobb is Primary Nurse. cp4 20:48 Rolando Virk MD is Hospitalizing Provider. kb 22:56 Patient admitted, IV remains in place. cp4 Administered Medications: 17:29 Drug: NS 0.9% IV (30 ml/kg) 30 ml/kg IV at bolus once; Sepsis Protocol Route: IV; Rate: mb9 bolus; Site: right antecubital; 18:53 Follow up: Response: No adverse reaction; IV Status: Completed infusion mb9 20:48 Drug: Rocephin IV 1 grams IV at calculated rate once; Given slow IV push per pharmacy cp4 instructions Route: IV; Rate: calculated rate; Site: right antecubital; 20:49 Follow up: Response: No adverse reaction; IV Status: Completed infusion cp4 20:48 Drug: Ibuprofen PO 800 mg PO once Route: PO; cp4 21:15 Follow up: Response: No adverse reaction; Pain is decreased cp4 Medication: 17:21 VIS not applicable for this client. mb9 Outcome: 20:49 Decision to Hospitalize by Provider. kb 22:56 Admitted to Med/surg accompanied by tech, via wheelchair, with chart, cp4 22:56 Condition: stable 22:56 Instructed on the need for admit, 22:58 Patient left the ED. cp4 Signatures: Dispatcher [employer] EDMS Carrie David, WATER JET LOOM FIXER-C WATER JET LOOM FIXER-CkMatt Nice tm3 Priya Delgado RN RN jl7 Sherry Suresh RN RN koArelis Sampson RN RN jAshley Bateman RN RN mb9 Ashley Stein Christina cp4 Corrections: (The following items were deleted from the chart) 19:33 19:00 Reassessment: ASSUMED CARE OF PT .PT SITTING IN BED WATCHING TV. NO PAIN OR jj7 DISTRESS. ALL VS STABLE BUT PT IS TACHY jj7
--- NOTE | 2024-04-21 20:49 | EDPHYS ---
Physician Documentation [facility] Name: Fermin Hanley Age: 54 yrs Sex: Male : 1970 Arrival Date: 04/21/2024 Time: 16:48 Bed 19 Private MD: ED Physician Pierre Giraldo HPI: 04/21 17:09 This 54 yrs old Male presents to ER via Ambulatory with complaints of Possible Kidney kb Stone. 17:10 Pt is a 54 year old male who presents for fever, headaches, pressure in suprapubic kb area, dysuria and hematuria that started yesterday. Reports fever of 102 this afternoon, took tylenol to treat. . Historical: - Allergies: 17:04 Sulfa (Sulfonamide Antibiotics); ko1 - PMHx: 17:04 diabetes mellitus; High Cholesterol; ko1 - PSHx: 17:04 testicular mass removal; ko1 - Immunization history:: Adult Immunizations unknown. - Infectious Disease History:: Denies. - Social history:: Smoking status: Patient denies any tobacco usage or history of. ROS: 17:08 Constitutional: As per HPI kb Exam: 17:08 Constitutional: This is a well developed, well nourished patient who is awake, alert, kb and in no acute distress. Head/Face: Normocephalic, atraumatic. ENT: Moist Mucous membranes Cardiovascular: Regular rate Respiratory: Respirations even and unlabored. No increased work of breathing. Talking in full sentences Abdomen/GI: Soft, non-tender. No distention Back: No spinal tenderness. No costovertebral tenderness. Full range of motion. Skin: Warm, dry with normal turgor. Normal color. MS/ Extremity: Pulses equal, no cyanosis. Neurovascular intact. Full, normal range of motion. Neuro: Awake and alert, GCS 15, oriented to person, place, time, and situation. Moves all extremities. Normal gait. 17:18 ECG was reviewed by the Attending Physician. kb Vital Signs: 17:00 BP 124 / 76; Pulse 126; Resp 18; Temp 99.5; Pulse Ox 97% on R/A; ko1 17:09 Weight 99.79 kg; Height 5 ft. 8 in. ; mb9 17:40 BP 109 / 73; Pulse 126; Resp 18; Pulse Ox 98% on R/A; mb9 18:37 BP 112 / 79; Pulse 117; Resp 18; Pulse Ox 95% on R/A; mb9 19:00 BP 117 / 82; Pulse 115; Resp 20; Pulse Ox 100% ; jj7 20:00 BP 170 / 91; Pulse 76; Resp 18; Pulse Ox 94% ; cp4 21:00 BP 186 / 93; Pulse 84; Resp 18; Pulse Ox 99% ; cp4 22:00 BP 176 / 84; Pulse 82; Resp 18; Pulse Ox 99% ; cp4 17:09 Body Mass Index 33.45 (99.79 kg, 172.72 cm) mb9 MDM: 16:54 Patient medically screened. kb 17:09 Data reviewed: vital signs, nurses notes. kb 17:09 Historians other than the Patient: Discussed treatment given prior to arrival with [facility] staff. 21:24 Differential diagnosis: UTI, prostatitis, kidney stone. Consideration of kb Admission/Observation Patient was admitted/placed on observation. Escalation of care including admission/observation considered. Management of patient was discussed with the following: Hospitalist: Dr Virk accepts pt for admission. Counseling: I had a detailed discussion with the patient and/or guardian regarding the historical points, exam findings, and any diagnostic results supporting the discharge/admit diagnosis, lab results, radiology results, the need for further work-up and treatment in the hospital. 04/21 17:49 Order name: Comprehensive Metabolic Panel; Complete Time: 18:08 [facility] 04/21 17:49 Order name: Lactate w/ 2H reflex if indic.; Complete Time: 18:08 [facility] 04/21 17:49 Order name: CBC with Automated Diff; Complete Time: 18:13 [facility] 04/21 17:49 Order name: Protime (+INR); Complete Time: 18:08 [facility] 04/21 17:49 Order name: PTT, Activated Partial Thromb; Complete Time: 18:08 [facility] 04/21 17:49 Order name: Blood Culture [facility] 04/21 17:49 Order name: Blood Culture [facility] 04/21 19:03 Order name: Urinalysis w/ reflexes; Complete Time: 19:19 [facility] 04/21 19:21 Order name: Urine Culture [facility] 04/21 21:00 Order name: CBC with Automated Diff [facility] 04/21 18:31 Order name: CT Stone Protocol; Complete Time: 20:28 kb 04/21 17:07 Order name: EKG; Complete Time: 17: kb 04/21 17:07 Order name: Cardiac monitoring; Complete Time: 17:29 kb 04/21 17:07 Order name: EKG - Nurse/Tech; Complete Time: 17:29 kb 04/21 17:07 Order name: IV Saline Lock - Large Bore; Complete Time: 17:29 kb 04/21 17:07 Order name: Labs collected and sent; Complete Time: 17:29 kb 04/21 17:07 Order name: O2 Per Protocol; Complete Time: 17: kb 04/21 17:07 Order name: O2 Sat Monitoring; Complete Time: 17: kb 04/21 17:07 Order name: Vital Signs; Complete Time: : kb EC:18 Rate is 130 beats/min. Rhythm is regular. QRS [place] is Normal. ME interval is normal at kb 140 msec. QRS interval is normal at 84 msec. QT interval is normal at 400 msec. Administered Medications: : Drug: NS 0.9% IV (30 ml/kg) 30 ml/kg IV at bolus once; Sepsis Protocol Route: IV; Rate: mb9 bolus; Site: right antecubital; 18:53 Follow up: Response: No adverse reaction; IV Status: Completed infusion mb9 20:48 Drug: Rocephin IV 1 grams IV at calculated rate once; Given slow IV push per pharmacy cp4 instructions Route: IV; Rate: calculated rate; Site: right antecubital; 20:49 Follow up: Response: No adverse reaction; IV Status: Completed infusion cp4 20:48 Drug: Ibuprofen PO 800 mg PO once Route: PO; cp4 21:15 Follow up: Response: No adverse reaction; Pain is decreased cp4 Disposition: 04/22 19:04 Co-signature as Attending Physician, Pierre Giraldo MD I reviewed the patient's care rt provided by the Advanced Practice Provider and agree with the diagnosis and treatment plan. Disposition Summary: 04/21/24 20:49 Hospitalization Ordered Notes: Hospitalization Status: Observation kb Provider: Rolando Virk Location: Telemetry/MedSurg (observation) kb Condition: Stable kb Problem: new kb Symptoms: are unchanged kb Bed/Room Type: Standard Room Assignment: 214(04/21/24 21:47) vc1 Diagnosis - Acute cystitis with hematuria kb - Sepsis, unspecified organism kb Forms: - Medication Reconciliation Form kb - SBAR form kb - Leadership Thank You Letter kb Signatures: Dispatcher [employer] Carrie Grier FNP-C FNP-Ckb Calcote, Vanessa, RN RN vc1 Sherry Suresh RN RN ko1 Samri, Ashley Vicente RN RN mb9 Pierre Giraldo MD MD rt Potter, Christina cp4 Corrections: (The following items were deleted from the chart) 04/21 21:47 20:49 kb vc1
[2024-04-21] MEDS ORDERED: ONDANSETRON 4 MG/2 ML VIAL IV PRN ×2 (20:54)
[2024-04-21] MEDS ORDERED: MORPHINE 4 MG/ML SYR IV PRN (20:54)
--- NOTE | 2024-04-21 21:03 | P.HP ---
Certification for Inpatient Patient admitted to: Inpatient With expected LOS: <2 Midnights Practitioner: I am a practitioner with admitting privileges, knowledge of patient current condition, hospital course, and medical plan of care. Services: Services provided to patient in accordance with Admission requirements found in Title 42 Section 412.3 of the Code of Federal Regulations Patient History Date of Service: 04/21/24 Reason for admission: Renal stones History of Present Illness: Patient is 54 years of age admitted with suprapubic discomfort relieved with micturition he denies any abdominal or flank pain mostly describes it as pressure went to the urgent care for possible UTI was treated with antibiotics and it appeared in the emergency room was found to have a 5 mm stone in his right ureter feeling somewhat better prior history of kidney stone in 2021 Allergies niacin Allergy (Verified 10/18/13 13:47) FLUSHING Home Medications: Docusate Calcium [Surfak*] 240 mg PO BID #36 cap 10/19/13 Hydrocodone/Acetaminophen [Vicodin Hp 10-300 mg Tablet] 1 - 2 each PO Q4HP PRN #36 tablet 10/19/13 - Past Medical/Surgical History Diabetic: No -: SLEEP APNEA -: HIGH CHOLESTEROL -: Left-sided renal cancer -: Hypertension -: NONE - Social History Smoking Status: Never smoker Alcohol use: No CD- Drugs: No Caffeine use: Yes Review of Systems 10-point ROS is otherwise unremarkable Physical Examination - Vital Signs Temperature: 99.5 F Blood Pressure: 124/76 Pulse: 126 Respirations: 18 Pulse Ox (%): 97 - Physical Exam General: Alert, In no apparent distress, Oriented x3 Neck: Supple Respiratory: Clear to auscultation bilaterally, Normal air movement Cardiovascular: No edema, Normal pulses, Regular rate/rhythm Gastrointestinal: Normal bowel sounds, Soft and benign, Non-distended, No tenderness, No masses Musculoskeletal: No clubbing, No swelling Integumentary: No rashes, No breakdown Neurological: Normal speech, Normal strength at 5/5 x4 extr - Studies Laboratory Data (last 24 hrs) 04/21/24 04/21/24 04/21/24 17:33 17:33 17:33 WBC 12.40 H Hgb 14.9 Hct 43.9 Plt Count 237 PT 13.0 H INR 1.17 APTT 35.6 Sodium 135 L Potassium 3.8 BUN 12 Creatinine 1.19 Glucose 137 H Total Bilirubin 1.7 H AST < 10 L ALT 24 Alkaline Phosphatase 90 Assessment and Plan - Problems (Diagnosis) (1) Kidney stone on right side Current Visit: Yes Status: Acute Plan: Patient is 54 years of age admitted with suprapubic discomfort he does have a right distal ureteric stone previous history of kidney stone apparently he underwent ablation of his left kidney at [facility] presumed cancer labs so far white count is mildly elevated urine shows evidence of infection will admit IV fluids pain relief IV antibiotics possible discharge a.m. history of slight hematuria appears to be very comfortable no obvious discomfort history of sleep apnea - Advance Directives Does patient have a Living Will: No Does patient have a Durable POA for Healthcare: No
[2024-04-21] MEDS ORDERED: MORPHINE 2 MG/ML SYR IV PRN (21:38)
[2024-04-21 22:51] VITALS: BMI 32.2
[2024-04-21 23:21] VITALS: O2SAT 99
[2024-04-21] MEDS: NA CHLORIDE 0.9% 1,000 ML IV SCH (23:38)
[2024-04-22 05:45] LABS: Absolute Basophils 0.1 K/uL (0-0.5); Absolute Eosinophils 0.1 K/uL (0-0.5); Absolute Lymphocytes (CBC) 0.7 K/uL (0.7-4.9); Absolute Monocytes 0.7 K/uL (0.1-1.3); Absolute Neutrophil 8.4 K/uL (1.8-8.0); Basophils % 0.5 % (0-1.3); Hematocrit 39.1 % (39.6-49.0); Hemoglobin 13.4 g/dL (13.6-17.9); Lymphocytes % 6.7 % (15.3-44.8); MCH 30.8 pg (27.0-35.0); MCHC 34.3 g/dL (32.0-36.0); MPV 7.6 fL (7.6-11.3); Monocytes % 6.8 % (3.3-12.3); Platelets 182 thou/uL (152-406); RBC Red Blood Cell Count 4.35 M/uL (4.33-5.43); Red Cell Distribution Width 13.2 % (12.1-15.2)
[2024-04-22] MEDS: CEFTRIAXONE 1,000 MG in NA CHLORIDE 0.9% 50 ML IVPB SCH (09:09)
[2024-04-22] MEDS: ACETAMIN/CAFFEINE/BUTALB TAB PO PRN (09:45)
--- NOTE | 2024-04-22 10:51 | P.PN ---
Subjective Date of Service: 04/22/24 Chief Complaint: Renal stones Subjective: Improving (feeling better, continues with soft bp and fever however) <Brit Gray - Last Filed: 04/22/24 12:23> Date of Service: 04/22/24 <Fahad Nathan - Last Filed: 04/29/24 21:49> Review of Systems 10-point ROS is otherwise unremarkable General: Fever, Weakness, Malaise Eyes: Unremarkable ENT: Unremarkable Respiratory: Unremarkable Cardiovascular: Unremarkable Gastrointestinal: Unremarkable Genitourinary: Unremarkable Musculoskeletal: Unremarkable Neurological: Unremarkable Lymphatics: Unremarkable <Brit Gray - Last Filed: 04/22/24 12:23> Physical Examination - Vital Signs Temperature: 97.6 F Blood Pressure: 119/70 Pulse: 107 Respirations: 14 Pulse Ox (%): 96 - Physical Exam General: Alert, In no apparent distress, Oriented x3 HEENT: Atraumatic, Normocephalic Neck: Supple Respiratory: Normal air movement Cardiovascular: Normal pulses, Regular rate/rhythm Capillary refill: <2 Seconds Gastrointestinal: Soft and benign Musculoskeletal: No clubbing Integumentary: No rashes Neurological: Normal speech, Normal tone, Normal affect Lymphatics: No axilla or inguinal lymphadenopathy External genitalia: Deferred Rectal: Deferred - Studies Laboratory Data (last 24 hrs) 04/21/24 04/21/24 04/21/24 17:33 17:33 17:33 WBC 12.40 H Hgb 14.9 Hct 43.9 Plt Count 237 PT 13.0 H INR 1.17 APTT 35.6 Sodium 135 L Potassium 3.8 BUN 12 Creatinine 1.19 Glucose 137 H Total Bilirubin 1.7 H AST < 10 L ALT 24 Alkaline Phosphatase 90 <Brit Gray - Last Filed: 04/22/24 12:23> Assessment And Plan - Plan Patient is 54 year old male with a history of left renal mass RCC ablated and q6m CT follow up treatment at [facility], Mr. Hanley also had a benign testicular mass removed, renal calculi, hypertension, hyperlipidemia, and diabetes. He presented to the emergency department with fever (Tmax 102), headache, and suprapubic discomfort. He was found to have a right distal ureteric stone. White count was mildly elevated and urine shows evidence of infection. Blood cultures and urine culture pending. The hospitalist program will admit IV fluids, pain relief, IV antibiotics, and await urine and blood culture results for safest management. Ureteral stone with leukocytosis and fever Initial lactate 1.9 Pain control Antipyretic Blood and urine cultures pending Broad-spectrum antibiotics -patient recently was placed on Cipro, Rocephin ordered overnight, will continue both Hypertension, hyperlipidemia, borderline blood pressure on admission IVF Hold losartan for systolic blood pressure less than 120, repeat Chem-7, mag, Phos Continue atorvastatin Headache Fioricet every 4 hours as needed for headache VTE/GI prophylaxis <Brit Gray - Last Filed: 04/22/24 12:23> Date of Service: 04/22/24 Patient was seen and examined. Events of the last 24 hours have been noted. Spoke with with [facility] regarding patient's clinical picture after evaluating and examining the patient independently. I performed a substantial part of the MDM during this patient's care today. I personally made or approved the documented management plan and acknowledge its risk of complications. I agree with the findings and documentation provided in the [facility]'s notes. <Fahad Nathan - Last Filed: 04/29/24 21:49>
[2024-04-22] MEDS: CIPROFLOXACIN HCL 500 MG TAB PO SCH (20:45)
[2024-04-22] MEDS: ATORVASTATIN 40 MG TAB PO SCH (20:45)
--- NOTE | 2024-04-23 08:17 | P.PN ---
Date of Service: 04/23/24 Subjective Pain control with NE analgesia Review of Systems 10-point ROS per HPI is otherwise unremarkable Physical Examination - Vital Signs Reviewed - Physical Exam General: Alert, In no apparent distress, Oriented x3 Neck: Supple Respiratory: Clear to auscultation bilaterally, Normal air movement Cardiovascular: No edema, Normal pulses, Regular rate/rhythm Gastrointestinal: Normal bowel sounds, Soft and benign, Non-distended, suprapubic tenderness Musculoskeletal: No clubbing, No swelling Integumentary: No rashes, No breakdown Neurological: Normal speech, Normal strength at 5/5 x4 extr Assessment and Plan - Problems (Diagnosis) Acute kidney stone on right Acute leukocytosis Acute suprapubic abdominal pain right ureteral stone 3 mm Current Visit: Yes Status: Acute Patient is 54 years of age admitted with suprapubic discomfort he does have a right distal ureteric stone previous history of kidney stone apparently he underwent ablation of his left kidney at [facility] presumed cancer labs so far white count is mildly elevated urine shows evidence of infection will admit IV fluids pain relief IV antibiotics possible discharge a.m. history of slight hematuria appears to be very comfortable no obvious discomfort history of sleep apnea Acute cystitis with hematuria History renal carcinoma History of testicular mass history of left renal mass RCC ablated and q6m CT follow up treatment at [facility], Mr. Hanley also had a benign testicular mass removed, Follow-up with [facility] after Hypertension Hyperlipidemia Continue antihypertensives, antilipid Headache As needed antihypertensives Full code DVT SCDs Diet cardiac - Advance Directives Does patient have a Living Will: No Does patient have a Durable POA for Healthcare: No Time with patient 35 minutes
--- NOTE | 2024-04-23 08:31 | P.DS ---
Admission Date: 04/23/24 Discharge Date: 04/23/24 Reason for Admission: Renal stones Brief History of Present Illness: History of Present Illness: Patient is 54 years of age admitted with suprapubic discomfort relieved with micturition he denies any abdominal or flank pain mostly describes it as pressure went to the urgent care for possible UTI was treated with antibiotics and it appeared in the emergency room was found to have a 5 mm stone in his right ureter feeling somewhat better prior history of kidney stone in 2021 - Physical Exam General: Alert, In no apparent distress, Oriented x3 HEENT: Atraumatic, Normocephalic Neck: Supple Respiratory: Normal air movement Cardiovascular: Normal pulses, Regular rate/rhythm Capillary refill: <2 Seconds Gastrointestinal: Soft and benign Musculoskeletal: No clubbing Integumentary: No rashes Neurological: Normal speech, Normal tone, Normal affect Lymphatics: No axilla or inguinal lymphadenopathy Hospital Course: 54 years of age admitted with suprapubic discomfort relieved with micturition he denies any abdominal or flank pain mostly describes it as pressure went to the urgent care for possible UTI was treated with antibiotics and it appeared in the emergency room was found to have a 5 mm stone in his right ureter. History of bladder cancer, needs to follow-up with MD Coulter after discharge, tolerating diet, stable to discharge home with p.o. antibiotics Discharge prescriptions Discharged home on Cipro, twice daily x 7 days #14 Flomax will that nightly at bedtime for 30 days Assessment right ureteral stone Kidney mass, status post ablation MD Coulter right distal ureteric stone previous history of kidney stone apparently he underwent ablation of his left kidney at [facility] presumed cancer labs UTI with hematuria, treated with antibiotics, discharged home on p.o. antibiotics. Attenuation of the left renal lesion follow-up with MD Coulter discharge CT abdomen 3 middle millimeter stone in the right distal ureter Continue home medicines as previously prescribed GOAL: Clear understanding of disease process INSTRUCTIONS: Physician Discharge Instructions: -Follow-up with MD Coulter discharge -Follow-up with PCP in 1 to 2 weeks -Please call Dr. Nathan at [phone] if any questions regarding hospital stay -Please call nursing station at [phone] if any nursing or medication questions -Return to the emergency room if symptoms worsen Diet: ADA, low sodium Activity: Fall precautions <Monserrat Khan - Last Filed: 04/23/24 14:53> Admission Date: 04/23/24 Discharge Date: 04/23/24 Hospital Course: Pt seen and examined. I agree with the note by the SEPARATOR OPERATOR. Pt is is feeling better. He received IVF and strained his urine. He has a 3mm stone which he likely passed. Pt was advised to stay hydrataed and continue cipro and flomax at home. He was advised to follow up with Dr. Tran in 1 - 2 weeks. <AlyssaIdrisany Lewis - Last Filed: 04/23/24 17:34> Disposition: ROUTINE DISCHARGE Discharge Condition: FAIR Vital Signs/Physical Exam: Temp Pulse Resp BP Pulse Ox 99.7 F 104 H 15 136/76 96 04/23/24 04:00 04/23/24 04:00 04/23/24 04:00 04/23/24 04:00 04/23/24 04:00 Laboratory Data at Discharge: WBC 9.90 thou/uL (4.3-10.9) 04/22/24 05:24 Hgb 13.4 g/dL (13.6-17.9) L D 04/22/24 05:24 Hct 39.1 % (39.6-49.0) L 04/22/24 05:24 Plt Count 182 thou/uL (152-406) 04/22/24 05:24 PT 13.0 SECONDS (9.4-12.5) H 04/21/24 17:33 INR 1.17 04/21/24 17:33 APTT 35.6 SECONDS (24.3-36.9) 04/21/24 17:33 Sodium 135 mEq/L (136-145) L 04/21/24 17:33 Potassium 3.8 mEq/L (3.5-5.1) 04/21/24 17:33 BUN 12 mg/dL (7-18) 04/21/24 17:33 Creatinine 1.19 mg/dL (0.70-1.30) 04/21/24 17:33 Glucose 137 mg/dL (74-106) H 04/21/24 17:33 Total Bilirubin 1.7 mg/dL (0.2-1.0) H 04/21/24 17:33 AST < 10 U/L (15-37) L 04/21/24 17:33 ALT 24 U/L (16-61) 04/21/24 17:33 Alkaline Phosphatase 90 U/L (45-117) 04/21/24 17:33 <Monserrat Khan - Last Filed: 04/23/24 14:53> Vital Signs/Physical Exam: Temp Pulse Resp BP Pulse Ox 98.0 F 114 H 18 154/95 H 97 04/23/24 16:00 04/23/24 16:00 04/23/24 16:00 04/23/24 16:00 04/23/24 16:00 Laboratory Data at Discharge: WBC 5.90 thou/uL (4.3-10.9) 04/23/24 09:09 Hgb 12.8 g/dL (13.6-17.9) L 04/23/24 09:09 Hct 37.3 % (39.6-49.0) L 04/23/24 09:09 Plt Count 182 thou/uL (152-406) 04/23/24 09:09 PT 13.0 SECONDS (9.4-12.5) H 04/21/24 17:33 INR 1.17 04/21/24 17:33 APTT 35.6 SECONDS (24.3-36.9) 04/21/24 17:33 Sodium 137 mEq/L (136-145) 04/23/24 09:09 Potassium 3.8 mEq/L (3.5-5.1) 04/23/24 09:09 BUN 12 mg/dL (7-18) 04/23/24 09:09 Creatinine 1.07 mg/dL (0.70-1.30) 04/23/24 09:09 Glucose 142 mg/dL (74-106) H 04/23/24 09:09 Magnesium 1.8 mg/dL (1.6-2.4) 04/23/24 09:09 Total Bilirubin 1.0 mg/dL (0.2-1.0) 04/23/24 09:09 AST 12 U/L (15-37) L 04/23/24 09:09 ALT 20 U/L (16-61) 04/23/24 09:09 Alkaline Phosphatase 74 U/L (45-117) 04/23/24 09:09 <Britta Shah - Last Filed: 04/23/24 17:34> Diet: Regular Activity: Fall precautions Time spent managing pt's care (in minutes): 55 <Monserrat Khan - Last Filed: 04/23/24 14:53> <Deisi Shahzechariah Lewis - Last Filed: 04/23/24 17:34> Home Medications: Atorvastatin Calcium 40 mg PO DAILY 04/21/24 Losartan Potassium 25 mg PO DAILY 04/21/24 Metformin HCl [Glucophage*] 500 mg PO BIDWM 04/21/24 Phenazopyridine HCl [Pyridium] 200 mg PO TID 04/21/24 Atorvastatin Calcium [Lipitor] 40 mg PO BEDTIME tab 04/23/24 Ciprofloxacin HCl [Cipro] 500 mg PO BID 7 Days #14 tab 04/23/24 Tamsulosin [Flomax] 0.4 mg PO BEDTIME 30 Days #30 cap 04/23/24 New Medications: Ciprofloxacin HCl [Cipro] 500 mg PO BID 7 Days #14 tab Tamsulosin [Flomax] 0.4 mg PO BEDTIME 30 Days #30 cap Physician Discharge Instructions: 54 years of age admitted with suprapubic discomfort relieved with micturition he denies any abdominal or flank pain mostly describes it as pressure went to the urgent care for possible UTI was treated with antibiotics and it appeared in the emergency room was found to have a 5 mm stone in his right ureter. History of bladder cancer, needs to follow-up with MD Coulter after discharge, tolerating diet, stable to discharge home with p.o. antibiotics Discharged home on Cipro 1 p.o. twice daily x 7 days #14 Flomax 1 p.o. daily at bedtime for 30 days Assessment right ureteral stone Kidney mass, status post ablation MD Coulter right distal ureteric stone previous history of kidney stone apparently he underwent ablation of his left kidney at [facility] presumed cancer labs UTI with hematuria, treated with antibiotics, discharged home on p.o. antibiotics. Attenuation of the left renal lesion follow-up with MD Coulter discharge CT abdomen 3 middle millimeter stone in the right distal ureter Continue home medicines as previously prescribed GOAL: Clear understanding of disease process INSTRUCTIONS: Physician Discharge Instructions: -Follow-up with MD Coulter discharge - Follow up with Dr. Tran in clinic in 1 - 2 weeks -Follow-up with PCP in 1 to 2 weeks -Please call Dr. Nathan at [phone] if any questions regarding hospital stay -Please call nursing station at [phone] if any nursing or medication questions -Return to the emergency room if symptoms worsen Diet: ADA, low sodium Activity: Fall precautions Followup: Elliott Lorenzo MD [Primary Care Provider] - Gume Harding [ACTIVE - CAN ADMIT] -
[2024-04-23 09:28] LABS: Absolute Lymphocytes (CBC) 0.4 K/uL (0.7-4.9); Absolute Monocytes 0.4 K/uL (0.1-1.3); Basophils % 0.6 % (0-1.3); Eosinophils % 0.7 % (0-4.4); Hematocrit 37.3 % (39.6-49.0); Hemoglobin 12.8 g/dL (13.6-17.9); Lymphocytes % 7.6 % (15.3-44.8); MCH 30.5 pg (27.0-35.0); MCHC 34.2 g/dL (32.0-36.0); MCV 89.2 fL (80-100); MPV 7.3 fL (7.6-11.3); Monocytes % 6.3 % (3.3-12.3); Neutrophils % 84.8 % (41.7-73.7); Nucleated Red Blood Cells % 0.2 % (0-0); Platelets 182 thou/uL (152-406); RBC Red Blood Cell Count 4.18 M/uL (4.33-5.43)
[2024-04-23 09:47] LABS: Albumin 2.8 g/dL (3.4-5.0); Albumin/Globulin Ratio 0.7 (1.1-1.8); Anion Gap 5.8 mEq/L (5.0-15.0); Globulin 3.8 g/dL (2.3-3.5); Magnesium 1.8 mg/dL (1.6-2.4); Potassium 3.8 mEq/L (3.5-5.1); Protein, Total 6.6 g/dL (6.4-8.2)
--- NOTE | 2024-04-23 10:20 | EKG ---
Test Date: 2024-04-21 Test Time: 17:16:06 [employer]ocad Designer: MB MEASUREMENT RESULTS: Intervals: Rate: 130 SC: 140 QRSD: 84 QT: 272 QTc: 400 [place]: P: 56 SC: 140 QRS: 54 T: 2 INTERPRETIVE STATEMENTS: Sinus tachycardia Low voltage QRS Septal infarct, age undetermined T wave abnormality, consider inferior ischemia Abnormal ECG Compared to ECG 10/18/2013 14:01:14 Low QRS voltage now present Myocardial infarct finding now present Possible ischemia now present Sinus rhythm no longer present T-wave abnormality still present Electronically Signed On 04-23-24 10:19:28 CDT by Anastacio Moses
[2024-04-23 16:30] VITALS: BP 154/95; TEMP 98
== END 2024-04-23 18:22 | disposition home or self-care (01) | DRG 872 ==
LOC: ER 16:48 → INTOOBSV 20:54 → OBSVTOIN 20:54 → ERHOLD 20:54 → 2ND 22:38 → OBSVTOIN 04-23 01:57
PROVIDERS: ADMIT Internal Medicine Sleep Medicine; ATTEND Hospitalist
DX: A41.9 Sepsis, unspecified organism (principal); N30.01 Acute cystitis with hematuria; N20.1 Calculus of ureter; E11.9 Type 2 diabetes mellitus without complications; E78.00 Pure hypercholesterolemia, unspecified; Z88.2 Allergy status to sulfonamides; Z88.1 Allergy status to other antibiotic agents; Z79.84 Long term (current) use of oral hypoglycemic drugs; Z79.899 Other long term (current) drug therapy
CPT/HCPCS: 36415; 74176; 76377; 80053; 81001; 83605; 83735; 85025; 85610; 85730; 87040; 87086; 87088; 93005; 96365; 96375; 99285; G0378; J0696; J7030